=== PATIENT | female | born 1960 | race Two or more races ===

== ENCOUNTER 2021-02-07 05:28 | Emergency (ER) | payer MEDICARE, OTHER, SELFPAY ==
[2021-02-07 06:05] VITALS: BP 143/68; PULSE 69; RESP 20; TEMP 36.3; O2SAT 97; BMI 31.0
[2021-02-07 07:29] VITALS: BP 140/64; PULSE 61; TEMP 35.5; O2SAT 100
--- NOTE | 2021-02-07 07:38 | ED.EXTPRO ---
HPI - Extremity Problem General Chief complaint: Extremity Problem Stated complaint: left hand pain, lower back pain Time Seen by Provider: 02/07/21 07:34 Source: patient Mode of arrival: ambulatory Limitations: no limitations History of Present Illness HPI Narrative: 60 yo female with chronic back pain on meloxicam hx of back surgery in the past that did not work for her at this time no b/b incontinence no saddle anesthesia - traveling to [place] tomorrow and was hoping for injection, she also c/o L thumb pain due to repetitive movements at his job Complaint: extremity pain and other (back pain) Onset (ago): month(s) Location: left (thumb) and other (chronic low back) Quality: aching, dull and constant Radiation: none Relieving factors: nothing Exacerbating factors: range of motion and palpation Associated symptoms: denies other symptoms Context: other (repetitive movements at work) Related Data Previous Rx's Medication Instructions Recorded diazepam [Valium] 5 mg PO TID PRN #10 tab 02/07/21 lidocaine 1 patch TOPICAL DAILY PRN #10 ea 02/07/21 Allergies Allergy/AdvReac Type Severity Reaction Status Date / Time aspirin [ASA] Allergy Unknown STOMACH Unverified 05/03/20 19:45 UPSET avocado [AVOCADO] Allergy Unknown RASH Unverified 05/03/20 19:45 Review of Systems Review of Systems: Constitutional : No Weight loss, No Fever, No Chills, ENT/Mouth : No Hearing loss, No Ear Pain, No Nasal Congestion, No Sinus Pain, No Hoarseness, No sore throat, No Rhinorrhea, No Swallowing Difficulty Cardiovascular : No Chest Pain, No SOB Respiratory : No Cough, No Dyspnea Gastrointestinal : No Nausea, No Vomiting, No Diarrhea, No abdominal Pain, No Hematochezia, No Melena Genitourinary : No Dysuria, No Urinary Frequency, No Hematuria, No Urinary Incontinence, Musculoskeletal : positive back pain, pos joint pain Skin : No Skin Lesions, No rash Neuro : No Weakness, No Numbness, No Paresthesias, no loss of bowel or bladder incontinence, no saddle anesthesia PMFSH Past Medical History Medical History (Updated 02/07/21 @ 07:54 by Darlene Carter DO) Back pain Surgical History (Updated 02/07/21 @ 07:49 by Darlene Carter DO) Previous back surgery Social History Social History Alcohol intake: current Alcohol intake frequency: holidays/special occasions only Patient Tobacco Use Status: Never used Tobacco Use of substances other than those prescribed or required for medical reasons: No Advance Directives: No Advance Directives Information Provided: No Physical Exam Vital Signs: Vital Signs: Last Vital Signs Temp 95.9 F L 02/07/21 07:29 Pulse 61 02/07/21 07:29 Resp 20 02/07/21 06:05 BP 140/64 H 02/07/21 07:29 Pulse Ox 100 02/07/21 07:29 Body Mass Index 31.0 Appearance: Alert. Oriented X3. No acute distress. Eyes: Pupils equal, round and reactive to light. ENT: Pharynx normal. Neck: Normal inspection. Neck supple. CVS: Normal heart rate and rhythm. Pulses normal. Respiratory: No respiratory distress. Breath sounds normal. Abdomen: Soft and non-tender. Back: ttp along lumbar area, no step offs Skin: Skin warm and dry. Normal skin color. Normal skin turgor. Extremities: No lower extremity edema. No calf ttp L thumb NV intact pos pain to palpation over thenar eminence and ROM Neuro: Oriented X 3. No motor deficit. No sensory deficit. MDM - Extremity (Nontraumatic) MDM Narrative Medical decision making narrative: 60 yo female with chronic back pain on meloxicam hx of back surgery in the past that did not work for her at this time no b/b incontinence no saddle anesthesia - traveling to [place] tomorrow and was hoping for injection, she also c/o L thumb pain due to repetitive movements at her job at this time no signs of CE syndrome, unfortunately it seems she is trying to get an injection prior to travel disucssed with her that this is not an ED treatment plan available, will start on valium and lidocaine patches, splint for her left wrist/thumb Discharge Plan Discharge Clinical Impression: Acute lumbar back pain, Arthralgia Patient Disposition: Home, Self-Care Instructions: Back Pain (ED), Arthritis (ED) Additional Instructions: return to ED for any worsening symptoms or concerns wear splint for comfort for 5 days Prescriptions: New lidocaine 4 % adhesive patch,medicated 1 patch topical DAILY PRN (Reason: pain) Qty: 10 RF: 0 diazepam [Valium] 5 mg tablet 5 mg PO TID PRN (Reason: muscle spasm) Qty: 10 RF: 0 Referrals: Physician,Unknown [Primary Care Provider] - 2 days (if not better) Print Language: Sinhala
[2021-02-07] MEDS: Lidocaine 4 % Patch ADH..PATCH 2 PATCH TRANSDERMA (07:49)
[2021-02-07] MEDS: diazePAM 5 MG TABLET PO (07:49)
== END 2021-02-07 08:05 | disposition home or self-care (01) ==
PROVIDERS: Emergency Provider Emergency Medicine
DX: M54.5 Low back pain (principal); M79.645 Pain in left finger(s)
CPT/HCPCS: 99283; 99284

== ENCOUNTER 2021-08-21 14:17 | Emergency (ER) | payer MEDICARE, OTHER, SELFPAY ==
--- NOTE | 2021-08-21 | ECG_ITS ---
Test Reason : arm pain Blood Pressure : / mmHG Vent. Rate : 069 BPM Atrial Rate : 069 BPM P-R Int : 154 ms QRS Dur : 082 ms QT Int : 450 ms P-R-T Axes : 054 020 -01 degrees QTc Int : 482 ms Normal sinus rhythm ST & T wave abnormality, consider inferior ischemia NSTT in anterior leads Prolonged QT Abnormal ECG No previous ECGs available Referred By: Generic ED Physician Electronically Signed By:CECE MCKENZIE MD
--- NOTE | ~2021-08-21 | XR_ITS ---
EXAMINATION: XR SHOULDER, LEFT CLINICAL INFORMATION: Shoulder pain COMPARISON: None TECHNIQUE: Left shoulder is imaged in 3 views. FINDINGS: No fracture, dislocation, destructive process. The glenohumeral joint is normal. The acromioclavicular alignment is normal. There is fine mineralization in region of distal supraspinatus consistent with calcific tendinosis. Left lung apex is clear. XR/XR shoulder LT min 2V IMPRESSION: Calcific tendinosis distal superior rotator cuff.
[2021-08-21 15:50] VITALS: BP 159/74; PULSE 76; RESP 18; TEMP 36.8; O2SAT 98
--- NOTE | 2021-08-21 17:03 | ED.NECK ---
HPI - Neck Pain/Injury General Chief Complaint: Neck Pain/Injury Stated Complaint: Neck pain L shoulder pain Time Seen by Provider: 08/21/21 16:36 Source: patient Mode of arrival: ambulatory Limitations: no limitations History of Present Illness HPI Narrative: 61-year-old female who presents emergency department for evaluation of left neck pain. The patient states she has been having pain in her left in a for approximately 3 months. She does not recall any injury. She is being treated for repetitive motion injury by [facility]. She is also getting physical therapy. She is on multiple medications including gabapentin, sulindac, Topamax, meloxicam and lidocaine patches. 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 She states she has a constant, left-sided neck pain which is a cramping /sharp pain which is 9/10 at its worst. The pain is worse if she tries to move her neck to the left. She states the pain radiates to her left shoulder and she has increased pain when she moves her left shoulder. She states the pain radiates down to her biceps as well. She states occasionally she gets tingling this and weakness in her left arm. She states that today, the pain was severe and was 9/10, she took her medications as prescribed her pain was still severe therefore she came to the emergency department for evaluation. She denied being ill in any other way, she denied fever, chills, chest pain, shortness of breath, dyspnea on exertion,nausea, vomiting, or weakness. Related Data Previous Rx's Medication Instructions Recorded diazepam 5 mg tablet (Valium) 5 mg PO TID PRN #10 tab 02/07/21 lidocaine 4 % topical patch 1 patch TOPICAL DAILY PRN #10 ea 02/07/21 cyclobenzaprine 10 mg tablet 10 mg PO TID PRN #20 tab 08/21/21 Allergies Allergy/AdvReac Type Severity Reaction Status Date / Time aspirin [ASA] Allergy Unknown STOMACH Verified 08/21/21 15:50 UPSET avocado [AVOCADO] Allergy Unknown RASH Verified 08/21/21 15:50 latex Allergy Rash Verified 08/21/21 15:50 Review of Systems Review of Systems: Yes all other systems are reviewed and are negative [facility] Past Medical History [facility] Narrative: Past medical history: Left neck pain, lower back pain,. Past surgical history: None. 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 She denies tobacco and alcohol use. She denies drug use. Medical History (Updated 08/21/21 @ 17:14 by Jin Farias MD) Back pain Surgical History (Updated 02/07/21 @ 07:49 by Darlene Carter DO) Previous back surgery Social History Social History Alcohol intake: current Alcohol intake frequency: holidays/special occasions only Patient Tobacco Use Status: Never used Tobacco Physical Exam Vital Signs: Vital Signs: Last Vital Signs Temp 98.2 F 08/21/21 15:50 Pulse 76 08/21/21 15:50 Resp 18 08/21/21 15:50 BP 159/74 H 08/21/21 15:50 Pulse Ox 98 08/21/21 15:50 BMI result Body Mass Index 30.0 Const: General: cooperative and no acute distress Limitations: no limitations HENMT: Head: Yes normal to inspection, Yes normocephalic and Yes atraumatic Ears: external ears normal General nose exam: Normal external nose present Face and sinus: Yes normal facial exam Mouth: Normal oral and palatal mucosa present Throat: Yes posterior oropharynx normal Eyes: General: appearance normal, both eyes and all related structures Neck: Other: The patient has no cervical spine tenderness, she does have significant tenderness with palpation and squeezing the trapezius muscle from the base of the skull to her shoulder. She has normal chin to chest and chin to right shoulder movement. She has limited chin to left shoulder movement secondary to pain and spasm of her trapezius muscles. She has no cervical spine tenderness. Chest: Chest palpation & inspection: normal inspection of the chest and normal palpation of entire chest wall Resp: Effort & Inspection: normal respiratory effort and able to speak in complete sentences Auscultation: clear to auscultation bilaterally Cardio: Rate: regular rate Rhythm: regular rhythm Heart sounds: S1 normal heart sound present, S2 normal heart sound present and no murmurs GI: Inspection: Yes normal to inspection Palpation (GI): Soft to palpation, nontender and no guarding Auscultation: normal bowel sounds : General: Yes no CVA tenderness Back/Spine/Pelvis: Back: no CVA tenderness Skin: General skin exam: no rashes or lesions noted Neuro: Other: Awake, alert, female, pleasant, cooperative, answers all questions appropriately, oriented to person place. Cranial nerves 2-12 are intact. Upper extremity strength is normal. Normal light touch. Motor exam (neuro): 5/5 motor strength present throughout Extrem: Other: Patient has no tenderness palpation of her deltoid muscle. She has full range of motion of her right shoulder both passively and actively. Psych: Appearance: grossly normal Speech and movement: Normal speech and movement present Affect: normal affect Attitude: cooperative Thought process: Normal thought process present Thought content: Normal thought content present Course Course Course Narrative: 61-year-old female who presents emergency department for evaluation left sided neck pain x3 months, worse today. Patient is currently being treated for repetitive motion injury by [facility], she is on medications for pain and is getting physical therapy. She states the pain today however was 9 of 10 therefore she came emergency department for evaluation. On examination the patient does have significant tenderness and spasm of the left trapezius muscle. Her exam is otherwise unremarkable. X-rays of her left shoulder revealed no acute injury, she does have calcification of the supraspinatus muscle but I do not think that this is the cause of her neck pain. The patient was advised to continue taking her medications as prescribed by her providers. She was also started on Flexeril ( cyclobenzaprine) 10 mg 3 times a day as needed for pain. I told her to initially take this medication at night and then take it during the day if she is not working. Patient was given a note not return to work until Thursday/ 08/23/2021. She was given printed and verbal instructions and discharged home. MDM - Neck Pain/Injury ECG Data Attestation: I personally reviewed and interpreted this ECG as follows: Interpretation: 1609: Normal sinus rhythm rate of 69, normal OR and QRS durations, prolonged QTC of 482 milliseconds, inverted T-waves in lead 3 and AVF, V1 and V3, no ST segment elevation, no ST segment depression, no PACs, no PVCs. Discharge Plan Discharge Clinical Impression: Strain of left trapezius muscle Patient Disposition: Home, Self-Care Additional Instructions: Continue taking medications as prescribed by [facility] providers. Take Flexeril (cyclobenzaprine) 10 mg pills, 1 pill every 6-8 hours as needed for pain or spasm. This medication will make you sleepy. Do not drive or work while taking this medication. Back Pain Discharge Instructions: Apply ice for 15 minutes to the area that hurts on your neck, then apply a heating a pad on low for 15 minutes. Do this 4-6 times a day to help reduce the pain in your neck. Continue with normal activities as tolerated since staying in bed and not moving around will make your pain worse. Please return to the Emergency Department or see your doctor immediately if your symptoms get worse or if you develop any new symptoms that are concerning you. Follow up with your doctor in 2 day. please see the work note Prescriptions: New cyclobenzaprine 10 mg tablet 10 mg PO TID PRN (Reason: muscle pain or spasm) Qty: 20 RF: 0 No Action lidocaine 4 % adhesive patch,medicated 1 patch topical DAILY PRN (Reason: pain) Qty: 10 RF: 0 diazepam [Valium] 5 mg tablet 5 mg PO TID PRN (Reason: muscle spasm) Qty: 10 RF: 0 Stand Alone Forms: Work/School Release
== END 2021-08-21 18:23 | disposition home or self-care (01) ==
LOC: HO.ED 17:21
PROVIDERS: Emergency Provider Emergency Medicine Emergency Medical Services; PCP Physician Assistant
DX: S16.1XXA Strain of muscle, fascia and tendon at neck level, initial encounter (principal); M25.512 Pain in left shoulder; X58.XXXA Exposure to other specified factors, initial encounter; Y93.9 Activity, unspecified; Y92.9 Unspecified place or not applicable; Y99.9 Unspecified external cause status
CPT/HCPCS: 73030; 93005; 99283

== ENCOUNTER 2021-11-13 10:11 | Emergency (ER) | payer MEDICARE, OTHER, SELFPAY ==
--- NOTE | ~2021-11-13 | XR_ITS ---
EXAMINATION: XR ABDOMEN KUB CLINICAL INDICATION: Low suspicion of ulcer perforation/free air COMPARISON: None TECHNIQUE: Supine view of the abdomen and pelvis FINDINGS: No dilated loops of bowel are seen. There is no evidence of free air. There are surgical clips in the right upper quadrant. There are bilateral pelvic calcifications probably representing calcified phleboliths. There is curvature of the lumbar spine to the left and degenerative change. There are degenerative changes at the hip joints. There is a 4 x 28 mm radiopaque density that projects over the right femoral intertrochanteric region. XR/XR KUB IMPRESSION: No evidence of free air. 4 x 28 mm radiopaque density projects over the right femoral intertrochanteric region. Clinical correlation recommended.
[2021-11-13 10:15] VITALS: BP 160/80; PULSE 76; RESP 18; TEMP 36.1; O2SAT 98; BMI 31.2
[2021-11-13 11:41] LABS: Basophils Percent Auto 0.3 % (0-2); Eosinophils Percent Auto 0.3 % (0-4); Hemoglobin 13.7 g/dl (12.0-16.0); Imm Gran Abs Auto 0.03 X10*3/uL (0.00-0.03); Imm Gran Pct Auto 0.4 % (0.0-0.4); Lymphocytes Absolute Auto 1.8 X10*3/uL (1.2-4.9); Lymphocytes Percent Auto 26.2 % (20-40); MANUAL DIFF FLAG NO; Mean Corpuscular HGB Conc 32.6 g/dl (31.0-35.0); Mean Corpuscular Hemoglobin 29.7 pg (27.0-33.0); Mean Corpuscular Volume 91.1 fL (80.0-98.0); Mean Platelet Volume 9.5 fL (9.4-12.3); Monocytes Absolute Auto 0.4 X10*3/uL (0.1-1.2); Monocytes Percent Auto 5.7 % (2-11); Neutrophils Absolute Auto 4.7 x10*3/uL (2.0-8.3); Neutrophils Percent Auto 67.1 % (45-73); Platelet Count 251 X10*3/uL (160-400); Red Blood Count 4.61 X10*6/uL (4.20-5.50); Red Cell Distribution Width 13.6 % (11.0-16.0)
[2021-11-13 12:11] LABS: Anion Gap 12 (12-20); Blood Urea Nitrogen 20 mg/dL (9-16); Carbon Dioxide 30 mmol/L (22-29); Chloride 104 mmol/L (96-108); Creatinine Clr Calc Pharmacy 88.9; Estimated Glomerular Filt Rate > 60; Glucose Random 90 mg/dL (60-115); Potassium 4.1 mmol/L (3.3-5.1); Sodium 142 mmol/L (135-145)
--- NOTE | 2021-11-13 13:44 | ED.ABDPAIN ---
HPI - Abdominal Pain General Chief Complaint: Abdominal Pain Stated Complaint: Abd pain/back pain Time Seen by Provider: 11/13/21 13:35 Source: patient Mode of arrival: ambulatory Limitations: no limitations History of Present Illness HPI narrative: Patient comes to the emergency room complaining of epigastric pain that gets worse with any food intake or liquid intake. Patient states that for the last 2 weeks it has become more painful. Patient states that she has history of cholecystectomy done many years ago?. Patient has been trying to take Tums and [id number] medications to help with the pain. Patient has never had an EGD in the past Related Data Previous Rx's Medication Instructions Recorded diazepam 5 mg tablet (Valium) 5 mg PO TID PRN #10 tab 02/07/21 lidocaine 4 % topical patch 1 patch TOPICAL DAILY PRN #10 ea 02/07/21 cyclobenzaprine 10 mg tablet 10 mg PO TID PRN #20 tab 08/21/21 omeprazole 20 mg capsule,delayed 20 mg PO DAILY #30 cap 11/13/21 release Allergies Allergy/AdvReac Type Severity Reaction Status Date / Time aspirin [ASA] Allergy Unknown STOMACH Verified 11/13/21 10:17 UPSET avocado [AVOCADO] Allergy Unknown RASH Verified 11/13/21 10:17 latex Allergy Rash Verified 11/13/21 10:17 [facility] Past Medical History Medical History (Updated 11/13/21 @ 16:27 by Isabel Ramirez MD) Back pain Surgical History (Updated 11/13/21 @ 13:50 by Isabel Ramirez MD) History of abdominoplasty History of cholecystectomy Previous back surgery Social History Social History Alcohol intake: current Alcohol intake frequency: holidays/special occasions only Patient Tobacco Use Status: Never used Tobacco Advance Directives: No Advance Directives Information Provided: No Physical Exam ED Vital Signs: Vital Signs - 24 hr 11/13/21 10:15 11/13/21 16:21 Temperature 97 F 98.2 F Pulse Rate 76 63 Respiratory Rate 18 17 Blood Pressure 160/80 H 140/76 H Pulse Oximetry 98 100 BMI result Body Mass Index 31.2 Const Other: Appearance: Alert. Oriented X3. No acute distress. Eyes: Pupils equal, round and reactive to light. ENT: Pharynx normal. Neck: Normal inspection. Neck supple. No lymph nodes noted. No crepitus CVS: Normal heart rate and rhythm. Pulses normal. Normal S1 and S2 Respiratory: No respiratory distress. Breath sounds normal. No Wheezing. No rales Abdomen: Soft , mild pain to palpation in the epigastric area, negative Lares sign Skin: Skin warm and dry. Normal skin color. Normal skin turgor. Extremities: No lower extremity edema. No Lacerations. No Rash Neuro: Oriented X 3. No motor deficit. No sensory deficit. Moving all extremities. No slurred speech. CN 2 through 12 grossly intact Psych: calm, cooperative, anxious Course Course Course Narrative: Patient's LFTs within normal limits, patient has history of cholecystectomy. Patient likely has gastritis versus peptic ulcer. I reviewed the KUB, it does not seem the patient has free air under the diaphragm. Radiology report pending, sign-out given to Dr. Aguila [facility] - Abdominal Pain Lab Data Result diagrams: 11/13/21 11:37 11/13/21 11:37 Labs: Lab Results 11/13/21 11/13/21 Range/Units 11:37 11:37 WBC 7.0 (4.8-10.8) X10*3/uL RBC 4.61 (4.20-5.50) X10*6/uL Hgb 13.7 (12.0-16.0) g/dl Hct 42.0 (37.0-47.0) % MCV 91.1 (80.0-98.0) fL MCH 29.7 (27.0-33.0) pg MCHC 32.6 (31.0-35.0) g/dl RDW 13.6 (11.0-16.0) % Plt Count 251 (160-400) X10*3/uL MPV 9.5 (9.4-12.3) fL Immature Gran % (Auto) 0.4 (0.0-0.4) % Neut % (Auto) 67.1 (45-73) % Lymph % (Auto) 26.2 (20-40) % [place] % (Auto) 5.7 (2-11) % Eos % (Auto) 0.3 (0-4) % Baso % (Auto) 0.3 (0-2) % Lymph # (Auto) 1.8 (1.2-4.9) X10*3/uL [place] # (Auto) 0.4 (0.1-1.2) X10*3/uL Eos # (Auto) 0.0 (0.0-0.4) X10*3/uL Baso # (Auto) 0.0 (0.0-0.2) X10*3/uL Abs Immat Gran (auto) 0.03 (0.00-0.03) X10*3/uL Absolute Neuts (auto) 4.7 (2.0-8.3) x10*3/uL Absolute Nucleated RBC 0.000 (0.0-0.012) X10*3/uL Nucleated RBC % (auto) 0.0 (0.0-0.2) /100WBC Sodium 142 (135-145) mmol/L Potassium 4.1 (3.3-5.1) mmol/L Chloride 104 (96-108) mmol/L Carbon Dioxide 30 H (22-29) mmol/L Anion Gap 12 (12-20) BUN 20 H (9-16) mg/dL Creatinine 0.69 (0.5-1.4) mg/dL Estim Creat Clear Calc 88.9 Estimated GFR > 60 Random Glucose 90 (60-115) mg/dL Calcium 10.0 (8.4-10.2) mg/dL Total Bilirubin 0.5 (0.0-1.0) mg/dL Direct Bilirubin 0.2 (0.0-0.5) mg/dL AST 17 (5-31) U/L ALT 16 (0-31) U/L Alkaline Phosphatase 80 (39-117) U/L Total Protein 7.3 (6.5-8.0) g/dL Albumin 4.5 (3.5-5.0) g/dL Lipase 14 (8-78) U/L Discharge Plan Discharge Clinical Impression: Peptic ulcer disease Patient Disposition: Home, Self-Care Instructions: Gastritis (ED), Diet for Stomach Ulcers and Gastritis (ED) Additional Instructions: Please follow-up with your primary care physician tomorrow. If you have any worsening or new symptoms, please return to the emergency room or call 911 Prescriptions: New omeprazole 20 mg capsule,delayed release(DR/EC) 20 mg PO DAILY Qty: 30 0RF No Action lidocaine 4 % adhesive patch,medicated 1 patch topical DAILY PRN (Reason: pain) Qty: 10 0RF Rx Instructions: may leave on for up to 12 hrs diazepam [Valium] 5 mg tablet 5 mg PO TID PRN (Reason: muscle spasm) Qty: 10 0RF cyclobenzaprine 10 mg tablet 10 mg PO TID PRN (Reason: muscle pain or spasm) Qty: 20 0RF
[2021-11-13 13:56] LABS: Alanine Aminotransferase 16 U/L (0-31); Albumin Level 4.5 g/dL (3.5-5.0); Alkaline Phosphatase 80 U/L (39-117); Aspartate Amino Transferase 17 U/L (5-31); Bilirubin Direct 0.2 mg/dL (0.0-0.5); Bilirubin Total 0.5 mg/dL (0.0-1.0); Lipase 14 U/L (8-78); Total Protein 7.3 g/dL (6.5-8.0)
[2021-11-13] MEDS: Magnesium Hydrox/Alum Hydrox 30 ML ORAL.SUSP PO (13:56)
[2021-11-13] MEDS: Lidocaine HCl Viscous 2 % 15 ML SOLUTION MUCOUS MEM (13:56)
[2021-11-13 16:21] VITALS: BP 140/76; PULSE 63; RESP 17; TEMP 36.8; O2SAT 100
[2021-11-13 16:30] LABS: Appearance Urine HAZY; Color Urine YELLOW; Glucose Urine UA NEG (NEG); Leukocyte Esterase Urine NEG (NEG); Nitrite Urine NEG (NEG); PH 6.5 (5.0-8.0); Specific Gravity - Urine 1.015 (1.005-1.025); Urine Blood NEG (NEG); Urine Ketones NEG (NEG); Urine Protein NEG (NEG-TRACE)
== END 2021-11-13 16:41 | disposition home or self-care (01) ==
PROVIDERS: Emergency Provider Emergency Medicine
DX: K27.9 Peptic ulcer, site unspecified, unspecified as acute or chronic, without hemorrhage or perforation (principal); R10.13 Epigastric pain; Z90.49 Acquired absence of other specified parts of digestive tract
CPT/HCPCS: 36415; 74018; 80048; 80076; 81003; 83690; 85025; 99283

== ENCOUNTER 2021-12-27 08:45 | Emergency (ER) | payer OTHER, SELFPAY ==
[2021-12-27 08:58] VITALS: BP 134/67; PULSE 70; RESP 19; TEMP 36.6; O2SAT 98; BMI 28.3
--- NOTE | 2021-12-27 09:17 | ED.BACK ---
HPI - Back Pain/Injury General Chief Complaint: Back Pain/Injury Stated Complaint: lower back pain/swollen ankle Time Seen by Provider: 12/27/21 09:15 Source: patient Mode of arrival: ambulatory Limitations: no limitations History of Present Illness HPI Narrative: just had cortisone shots 1+ week ago at [facility] no relief of pain states she feels stiff now and her pain is not relieved with flexeril. she also c/o ankle swelling x 1 year that his not getting better despite lasix 20mg daily - has not seen a vascular surgeon and compression stockings never helped MD elicited complaint: back pain Pertinent past history: prior back pain Onset (ago): year(s) (1) Timing: constant Severity: moderate Quality: aching and throbbing Location: lumbar spine and thoracic spine Radiation: none Exacerbating factors: movement Relieving factors: none Context: other (chronic back pain) Associated symptoms: other (denies b/b incontinence, saddle anesthesia, also c/o 1 year of ankle swelling) Treatments prior to arrival: other (flexeril) Related Data Previous Rx's Medication Instructions Recorded diazepam 5 mg tablet (Valium) 5 mg PO TID PRN #10 tab 02/07/21 lidocaine 4 % topical patch 1 patch TOPICAL DAILY PRN #10 ea 02/07/21 cyclobenzaprine 10 mg tablet 10 mg PO TID PRN #20 tab 08/21/21 omeprazole 20 mg capsule,delayed 20 mg PO DAILY #30 cap 11/13/21 release morphine 15 mg immediate release 15 mg PO TID PRN #10 tab 12/27/21 tablet Allergies Allergy/AdvReac Type Severity Reaction Status Date / Time aspirin [ASA] Allergy Unknown STOMACH Verified 11/13/21 10:17 UPSET avocado [AVOCADO] Allergy Unknown RASH Verified 11/13/21 10:17 latex Allergy Rash Verified 11/13/21 10:17 Review of Systems Review of Systems: Constitutional : No Weight loss, No Fever, No Chills, ENT/Mouth : No Hearing loss, No Ear Pain, No Nasal Congestion, No Sinus Pain, No Hoarseness, No sore throat, No Rhinorrhea, No Swallowing Difficulty Cardiovascular : No Chest Pain, No SOB, pos ankle swelling Respiratory : No Cough, No Dyspnea Gastrointestinal : No Nausea, No Vomiting, No Diarrhea, No abdominal Pain, No Hematochezia, No Melena Genitourinary : No Dysuria, No Urinary Frequency, No Hematuria, No Urinary Incontinence, Musculoskeletal : positive back pain Skin : No Skin Lesions, No rash Neuro : No Weakness, No Numbness, No Paresthesias, no loss of bowel or bladder incontinence, no saddle anesthesia All other systems reviewed and are negative [facility] Past Medical History Attestation statement: The following information was validated with the patient. Medical History Back pain GERD (gastroesophageal reflux disease) HTN (hypertension) Lower extremity edema Surgical History History of abdominoplasty History of cholecystectomy Previous back surgery Social History Social History Alcohol intake: never Patient Tobacco Use Status: Never used Tobacco Use of substances other than those prescribed or required for medical reasons: No Advance Directives: No Advance Directives Information Provided: No Physical Exam Vital Signs: Vital Signs: Last Vital Signs Temp 98 F 12/27/21 08:58 Pulse 68 12/27/21 10:13 Resp 18 12/27/21 10:13 BP 117/65 12/27/21 10:13 Pulse Ox 98 12/27/21 10:13 BMI result Body Mass Index 28.3 Appearance: Alert. Oriented X3. No acute distress. Eyes: Pupils equal, round and reactive to light. ENT: Pharynx normal. Neck: Normal inspection. Neck supple. CVS: Normal heart rate and rhythm. Pulses normal. Respiratory: No respiratory distress. Breath sounds normal. Abdomen: Soft and non-tender. Back: ttp along both paraspinals no meningeal signs Skin: Skin warm and dry. Normal skin color. Normal skin turgor. Extremities: non pitting bilateral ankle edema. No calf ttp Neuro: Oriented X 3. No motor deficit. No sensory deficit. Course Course Course Narrative: negative labs stable for DC will refer to vascular surgery MDM - Back Pain/Injury MDM Narrative Medical decision making narrative: 61 yo female with hx of HTN, GERD, LE edema, chronic back pain here with c/o ankle swelling which is non pitting x 1 year on lasix 20mg daily doubt DVT given chronicity. At this time also c/o chronic back pain didn't respond to injections of steroids - no fevers no b/b incontinence no saddle anesthesia - no CE symptoms - will treat pain with PO medications. Obtain basic labs for ankle swelling but likely combination of immobility from back and venous insufficiency. Dispo per results and clinical improvement. Lab Data Result diagrams: 12/27/21 09:33 12/27/21 09:33 Labs: Lab Results 12/27/21 12/27/21 12/27/21 Range/Units 09:33 09:33 09:33 WBC 5.2 (4.8-10.8) X10*3/uL RBC 4.16 L (4.20-5.50) X10*6/uL Hgb 12.2 (12.0-16.0) g/dl Hct 37.4 (37.0-47.0) % MCV 89.9 (80.0-98.0) fL MCH 29.3 (27.0-33.0) pg MCHC 32.6 (31.0-35.0) g/dl RDW 13.4 (11.0-16.0) % Plt Count 227 (160-400) X10*3/uL MPV 9.7 (9.4-12.3) fL Immature Gran % (Auto) 0.2 (0.0-0.4) % Neut % (Auto) 67.0 (45-73) % Lymph % (Auto) 24.9 (20-40) % [place] % (Auto) 7.1 (2-11) % Eos % (Auto) 0.6 (0-4) % Baso % (Auto) 0.2 (0-2) % Lymph # (Auto) 1.3 (1.2-4.9) X10*3/uL [place] # (Auto) 0.4 (0.1-1.2) X10*3/uL Eos # (Auto) 0.0 (0.0-0.4) X10*3/uL Baso # (Auto) 0.0 (0.0-0.2) X10*3/uL Abs Immat Gran (auto) 0.01 (0.00-0.03) X10*3/uL Absolute Neuts (auto) 3.5 (2.0-8.3) x10*3/uL Absolute Nucleated RBC 0.000 (0.0-0.012) X10*3/uL Nucleated RBC % (auto) 0.0 (0.0-0.2) /100WBC Sodium 141 (135-145) mmol/L Potassium 3.8 (3.3-5.1) mmol/L Chloride 109 H (96-108) mmol/L Carbon Dioxide 25 (22-29) mmol/L Anion Gap 11 L (12-20) BUN 25 H (9-16) mg/dL Creatinine 0.73 (0.5-1.4) mg/dL Estim Creat Clear Calc 80.2 Estimated GFR > 60 Random Glucose 98 (60-115) mg/dL Calcium 9.3 D (8.4-10.2) mg/dL Magnesium 2.0 (1.6-2.6) mg/dL Total Bilirubin 0.2 (0.0-1.0) mg/dL Direct Bilirubin < 0.2 (0.0-0.5) mg/dL AST 13 (5-31) U/L ALT 13 (0-31) U/L Alkaline Phosphatase 76 (39-117) U/L B-Natriuretic Peptide 67 (<100) pg/mL Total Protein 6.6 (6.5-8.0) g/dL Albumin 3.9 (3.5-5.0) g/dL TSH 1.35 (0.32-4.0) uIU/mL Discharge Plan Discharge Clinical Impression: Pedal edema Chronic back pain Qualifiers: Back pain location: back pain in unspecified location Back pain laterality: bilateral Qualified Code(s): M54.9 - Dorsalgia, unspecified Patient Disposition: Home, Self-Care Instructions: Back Pain (ED), Edema (ED) Additional Instructions: return to ED for any worsening symptoms or concerns Prescriptions: New morphine 15 mg tablet 15 mg PO TID PRN (Reason: pain) Qty: 10 0RF Rx Instructions: partial fill okay No Action lidocaine 4 % adhesive patch,medicated 1 patch topical DAILY PRN (Reason: pain) Qty: 10 0RF Rx Instructions: may leave on for up to 12 hrs diazepam [Valium] 5 mg tablet 5 mg PO TID PRN (Reason: muscle spasm) Qty: 10 0RF cyclobenzaprine 10 mg tablet 10 mg PO TID PRN (Reason: muscle pain or spasm) Qty: 20 0RF omeprazole 20 mg capsule,delayed release(DR/EC) 20 mg PO DAILY Qty: 30 0RF Referrals: Gentry Ferguson MD [Physician] - 2 weeks Stand Alone Forms: Work/School Release
[2021-12-27 09:40] LABS: MANUAL DIFF FLAG NO
[2021-12-27 09:46] LABS: Basophils Percent Auto 0.2 % (0-2); Eosinophils Percent Auto 0.6 % (0-4); Hematocrit 37.4 % (37.0-47.0); Hemoglobin 12.2 g/dl (12.0-16.0); Imm Gran Abs Auto 0.01 X10*3/uL (0.00-0.03); Imm Gran Pct Auto 0.2 % (0.0-0.4); Lymphocytes Absolute Auto 1.3 X10*3/uL (1.2-4.9); Lymphocytes Percent Auto 24.9 % (20-40); Mean Corpuscular HGB Conc 32.6 g/dl (31.0-35.0); Mean Corpuscular Hemoglobin 29.3 pg (27.0-33.0); Mean Corpuscular Volume 89.9 fL (80.0-98.0); Mean Platelet Volume 9.7 fL (9.4-12.3); Monocytes Absolute Auto 0.4 X10*3/uL (0.1-1.2); Monocytes Percent Auto 7.1 % (2-11); Neutrophils Absolute Auto 3.5 x10*3/uL (2.0-8.3); Platelet Count 227 X10*3/uL (160-400); Red Blood Count 4.16 X10*6/uL (4.20-5.50); Red Cell Distribution Width 13.4 % (11.0-16.0); White Blood Count 5.2 X10*3/uL (4.8-10.8)
[2021-12-27 10:03] LABS: Alanine Aminotransferase 13 U/L (0-31); Albumin Level 3.9 g/dL (3.5-5.0); Alkaline Phosphatase 76 U/L (39-117); Anion Gap 11 (12-20); Aspartate Amino Transferase 13 U/L (5-31); Bilirubin Direct < 0.2 mg/dL (0.0-0.5); Bilirubin Total 0.2 mg/dL (0.0-1.0); Blood Urea Nitrogen 25 mg/dL (9-16); Calcium 9.3 mg/dL (8.4-10.2); Carbon Dioxide 25 mmol/L (22-29); Chloride 109 mmol/L (96-108); Creatinine Clr Calc Pharmacy 80.2; Estimated Glomerular Filt Rate > 60; Glucose Random 98 mg/dL (60-115); Potassium 3.8 mmol/L (3.3-5.1); Sodium 141 mmol/L (135-145); Total Protein 6.6 g/dL (6.5-8.0)
[2021-12-27] MEDS: diazePAM 2 MG TABLET PO (10:11)
[2021-12-27] MEDS: Morphine Sulfate Immed Release 15 MG TABLET PO (10:12)
[2021-12-27 10:13] VITALS: BP 117/65; PULSE 68; RESP 18; O2SAT 98
[2021-12-27 10:19] LABS: B Type Natriuretic Peptide 67 pg/mL (<100)
[2021-12-27 10:23] LABS: TSH reflex Free T4 1.35 uIU/mL (0.32-4.0)
== END 2021-12-27 11:57 | disposition home or self-care (01) ==
PROVIDERS: Emergency Provider Emergency Medicine; PCP Nurse Practitioner Family
DX: M54.50 Low back pain, unspecified (principal); R60.0 Localized edema; I10 Essential (primary) hypertension; Z79.899 Other long term (current) drug therapy
CPT/HCPCS: 36415; 80048; 80076; 83735; 83880; 84443; 85025; 99283; 99284

== ENCOUNTER → 2022-02-04 11:35 | Outpatient (BNVA) | payer OTHER, SELFPAY | PROVIDERS: PCP Nurse Practitioner Family; Visit Provider Surgery Vascular Surgery | DX: I83.12 Varicose veins of left lower extremity with inflammation (principal) | CPT/HCPCS: 99202 ==

== ENCOUNTER 2022-04-03 10:37 | Outpatient (REF) | payer OTHER, SELFPAY ==
--- NOTE | ~2022-04-03 | US_ITS ---
EXAMINATION: BILATERAL LOWER EXTREMITY VENOUS ULTRASOUND (Reflux Exam) CLINICAL INDICATION: Lower extremity varicose veins COMPARISON: None. TECHNIQUE: Color flow triplex imaging and compression Doppler was performed to evaluate both the deep and the superficial systems bilaterally. To evaluate the superficial system, the examination was performed in the upright position. Color-flow Doppler ultrasound and compression ultrasound were utilized. In addition, maneuvers were utilized to demonstrate reflux. FINDINGS: SUPERFICIAL ULTRASOUND WITH DOPPLER OF RIGHT LOWER EXTREMITY GREAT SAPHENOUS VEIN: Saphenofemoral junction: 7 mm Max diameter: 7 mm Min diameter: 3 mm Reflux: There is reflux from the knee to the ankle measuring up to 3.3 seconds. DUPLICATED MEDIAL GREAT SAPHENOUS VEIN: Max Diameter: 3 mm at the junction Reflux: None DUPLICATED LATERAL GREAT SAPHENOUS VEIN: Diameter: 2 mm at the junction Reflux: None SMALL SAPHENOUS VEIN: Proximal Calf: 3 mm Distal Calf: 2 mm Reflux: No evidence of reflux. VEIN OF GIACOMINI: None Imaged. PERFORATORS: Location: Mid/distal calf, measuring 2 mm. Reflux: None VARICOSITIES: Location: Knee and proximal calf measuring between 3 and 4 mm. Reflux: Proximal calf varix demonstrates up to 3.1 seconds of reflux. DEEP VENOUS ULTRASOUND OF THE RIGHT LOWER EXTREMITY: Common Femoral Vein: Compressible, normal respiratory variation and augmented flow. Femoral vein: Compressible, normal color flow and augmentation. Popliteal Vein: Compressible, normal augmentation. Deep Reflux: There is no evidence of reflux in the deep system in either the common femoral vein or the popliteal vein. García's Cyst: There is no evidence of a García's cyst. SUPERFICIAL ULTRASOUND WITH DOPPLER OF LEFT LOWER EXTREMITY GREAT SAPHENOUS VEIN: Saphenofemoral junction: 7 mm Max diameter: 7 mm Min diameter: 2 mm Reflux: Segmental reflux at the knee up to 2 seconds DUPLICATED MEDIAL GREAT SAPHENOUS VEIN: Max Diameter: 3 mm at the junction Reflux: None DUPLICATED LATERAL GREAT SAPHENOUS VEIN: Diameter: 4 mm at the junction Reflux: None SMALL SAPHENOUS VEIN: Proximal Calf: 4 mm Distal Calf: 4 mm Reflux: No evidence of reflux. VEIN OF GIACOMINI: None Imaged. PERFORATORS: Location: Mid thigh and mid calf measuring 2 mm Reflux: None VARICOSITIES: Location: None Imaged Reflux: NA DEEP VENOUS ULTRASOUND OF THE LEFT LOWER EXTREMITY: Common Femoral Vein: Compressible, normal respiratory variation and augmented flow. Femoral vein: Compressible, normal color flow and augmentation. Popliteal Vein: Compressible, normal augmentation. Deep Reflux: There is no evidence of reflux in the deep system in either the common femoral vein or the popliteal vein. García's Cyst: There is no evidence of a García's cyst. US/US venous duplex LE BI IMPRESSION: 1. Bilateral great saphenous venous insufficiency as above. 2. No evidence of small saphenous venous insufficiency. 3. Multiple right lower extremity varicosities. 4. No evidence of DVT or deep venous insufficiency.
== END 2022-04-03 10:38 | disposition home or self-care (01) ==
LOC: HO.US 10:37
PROVIDERS: Visit Provider Surgery Vascular Surgery
DX: I83.12 Varicose veins of left lower extremity with inflammation (principal)
CPT/HCPCS: 93970

== ENCOUNTER → 2022-04-15 15:34 | Outpatient (BNVA) | payer OTHER, SELFPAY | PROVIDERS: PCP Nurse Practitioner Family; Visit Provider Surgery Vascular Surgery | DX: I83.12 Varicose veins of left lower extremity with inflammation (principal); I89.0 Lymphedema, not elsewhere classified | CPT/HCPCS: 99212 ==

== ENCOUNTER 2022-05-07 06:51 | Emergency (ER) | payer OTHER, SELFPAY ==
[2022-05-07 07:12] VITALS: BP 153/76; PULSE 86; RESP 18; TEMP 36.9; O2SAT 97; BMI 31.7
--- NOTE | 2022-05-07 07:36 | ED_ITS ---
HPI - Neck Pain/Injury General Chief Complaint: Neck Pain/Injury Stated Complaint: l sided neck and shoulder pain no inj Time Seen by Provider: 05/07/22 07:24 Source: patient and old records reviewed Mode of arrival: ambulatory Limitations: no limitations History of Present Illness HPI Narrative: 61 yo female with hx of chronic neck pain, GERD, lymphedema here wtih c/o 2 days L sided neck spasm that she cannot get rid of. She denies injury states she woke up like this. She cannot turn to the left. no numbness or tingling complaint: neck pain Onset (ago): day(s) (2) Place: home Radiation: left lateral Severity: moderate Quality: spasming and throbbing Duration: constant Relieving factors: immobilization Exacerbating factors: movement of neck Context: other (hx of neck pain) Associated symptoms: none Treatments prior to arrival: other (daily medications) Related Data Home Medications Medication Instructions Recorded Confirmed furosemide 20 mg tablet 20 mg PO DAILY 02/04/22 Previous Rx's Medication Instructions Recorded diazepam 5 mg tablet (Valium) 5 mg PO TID PRN muscle spasm #10 02/07/21 tabs lidocaine 4 % topical patch 1 patch topical DAILY PRN pain #10 02/07/21 ea cyclobenzaprine 10 mg tablet 10 mg PO TID PRN muscle pain or 08/21/21 spasm #20 tabs omeprazole 20 mg capsule,delayed 20 mg PO DAILY #30 caps 11/13/21 release morphine 15 mg immediate release 15 mg PO TID PRN pain #10 tabs 12/27/21 tablet diazepam 5 mg tablet (Valium) 5 mg PO TID PRN muscle spasm #10 05/07/22 tabs diclofenac sodium 1 % topical gel 2 g topical QID #100 grams 05/07/22 (Voltaren Arthritis Pain) lidocaine 5 % topical patch 1 patch topical DAILY #30 ea 05/07/22 Allergies Allergy/AdvReac Type Severity Reaction Status Date / Time aspirin [ASA] Allergy Unknown STOMACH Verified 04/15/22 15:42 UPSET avocado [AVOCADO] Allergy Unknown RASH Verified 04/15/22 15:42 latex Allergy Rash Verified 04/15/22 15:42 Review of Systems Review of Systems: Constitutional : No Fever, No Chills ENT/Mouth : No Ear Pain, No Hoarseness, No sore throat Eyes: No Eye Pain, No Swelling, No Redness, No Foreign Body Cardiovascular : No Chest Pain, No SOB Respiratory : No Cough, No Dyspnea Gastrointestinal : No Nausea, No Vomiting, No Diarrhea, No abdominal Pain Musculoskeletal : No Myalgias, pos neck pain Skin : No Skin lacerations, No rash Neuro : No Weakness, No Numbness, No Loss of Consciousness, No Dizziness, No Headache PMFSH Past Medical History Medical History Back pain GERD (gastroesophageal reflux disease) HTN (hypertension) Lower extremity edema Surgical History History of abdominoplasty History of cholecystectomy Previous back surgery Family History Family History Father No problems noted. Mother Heart disease Diabetes Arthritis Social History Social History Alcohol intake: never Patient Tobacco Use Status: Never used Tobacco Advance Directives: No Advance Directives Information Provided: No Physical Exam Vital Signs: Vital Signs: Last Vital Signs Temp 98.5 F 05/07/22 07:12 Pulse 86 05/07/22 07:12 Resp 18 05/07/22 07:12 BP 153/76 H 05/07/22 07:12 Pulse Ox 97 05/07/22 07:12 O2 Del Method 05/07/22 07:12 BMI result Body Mass Index 31.7 Appearance: Alert. Oriented X3. No acute distress. Eyes: Pupils equal, round and reactive to light. ENT: Pharynx normal. Neck: L side of the neck in moderate spasm ttp no rash seen no mass felt CVS: Normal heart rate and rhythm. Pulses normal. Respiratory: No respiratory distress. Breath sounds normal. Abdomen: Soft and non-tender. Skin: Skin warm and dry. Normal skin color. Normal skin turgor. Extremities: No lower extremity edema. Neuro: Oriented X 3. No motor deficit. No sensory deficit. LUE SILT intact bounding radial pulses MDM - Neck Pain/Injury MDM Narrative Medical decision making narrative: 61 yo female with hx of chronic neck pain, GERD, lymphedema here with 2 days of reproduceable L sided neck pain upon waking - no bruit, UE are NV intact. At this time doubt NV compromise or dissection. Will provide analgesia and refer to PCP. Stable for DC home. Discharge Plan Discharge Clinical Impression: Cervical paraspinal muscle spasm Patient Disposition: Home, Self-Care Instructions: Cervical Strain (ED) Additional Instructions: return to ED for any worsening symptoms or concerns Prescriptions: New diazepam [Valium] 5 mg tablet 5 mg PO TID PRN (Reason: muscle spasm) Qty: 10 0RF Rx Instructions: partial fill is okay lidocaine 5 % adhesive patch,medicated 1 patch topical DAILY Qty: 30 0RF Rx Instructions: leave on most painful area for up to 12 hrs diclofenac sodium [Voltaren Arthritis Pain] 1 % gel 2 g topical QID Qty: 100 0RF Rx Instructions: apply to single elbow, wrist or hand; for hand includes palm/fingers/back of hand No Action lidocaine 4 % adhesive patch,medicated 1 patch topical DAILY PRN (Reason: pain) Qty: 10 0RF Rx Instructions: may leave on for up to 12 hrs diazepam [Valium] 5 mg tablet 5 mg PO TID PRN (Reason: muscle spasm) Qty: 10 0RF cyclobenzaprine 10 mg tablet 10 mg PO TID PRN (Reason: muscle pain or spasm) Qty: 20 0RF omeprazole 20 mg capsule,delayed release(DR/EC) 20 mg PO DAILY Qty: 30 0RF morphine 15 mg tablet 15 mg PO TID PRN (Reason: pain) Qty: 10 0RF Rx Instructions: partial fill okay furosemide 20 mg tablet 20 mg PO DAILY Referrals: Kaela Noguera NONPROFIT MANAGER [Primary Care Provider] - 2 days (if not better) Stand Alone Forms: Work/School Release Interventions: ED Discharge Assessment Last Done: 05/07/22 08:13 Discharge Date/Time: 05/07/22 08:13
== END 2022-05-07 08:13 | disposition home or self-care (01) ==
LOC: HO.ED 07:46
PROVIDERS: Emergency Provider Emergency Medicine; PCP Nurse Practitioner Family
DX: M62.838 Other muscle spasm (principal); M54.2 Cervicalgia
CPT/HCPCS: 99282; 99283

== ENCOUNTER 2022-07-03 20:29 | Emergency (ER) | payer OTHER, SELFPAY ==
--- NOTE | ~2022-07-03 | CT_ITS ---
EXAMINATION: CT CERVICAL SPINE WITHOUT CONTRAST CLINICAL INFORMATION: Neck pain COMPARISON: None. TECHNIQUE: Contiguous helical images of the cervical spine were obtained without IV contrast. Multiplanar reconstructions were performed. This CT examination was performed using dose optimization techniques as appropriate, variously including the following: *Automated exposure control *Adjustment of mA and/or kV according to patient size (this includes techniques or standardized protocols for targeted exams where dose is matched to indication/reason for exam; i.e. extremities or head) *Use of iterative reconstruction technique DLP: 414 mGy-cm FINDINGS: Alignment:Mild reversal of the normal cervical lordosis. No subluxation. Vertebra:No acute fracture. No prevertebral soft tissue swelling. Degenerative disc disease:Mild to moderate disc height loss at C4-C5 and C5-C6 with mild endplate sclerosis and change. Mild degenerative disc disease at T1-T2. Intervertebral disc heights otherwise maintained. Right-sided uncovertebral spurring at C5 and C6. Other findings:No cervical lymphadenopathy. Visualized major salivary glands and thyroid gland are unremarkable. Visualized base of the brain is grossly unremarkable. Visualized lung apices are clear. Mild mucosal thickening and mucous retention cyst in the left sphenoid sinus with mild hyperostosis. CT/CT cervical spine wo IV con IMPRESSION: 1. No subluxation or acute cervical spine fracture. 2. Mild to moderate degenerative disc disease at C4-C5 and C5-C6.
[2022-07-03 20:34] VITALS: BP 164/73; PULSE 71; RESP 18; TEMP 36.2; O2SAT 98; BMI 29.2
--- NOTE | 2022-07-03 20:34 | ED.NECK ---
HPI - Neck Pain/Injury General Chief Complaint: Neck Pain/Injury Stated Complaint: neck pain Time Seen by Provider: 07/03/22 22:53 Related Data Home Medications Medication Instructions Recorded Confirmed furosemide 20 mg tablet 20 mg PO DAILY 02/04/22 Previous Rx's Medication Instructions Recorded diazepam 5 mg tablet (Valium) 5 mg PO TID PRN muscle spasm #10 02/07/21 tabs lidocaine 4 % topical patch 1 patch topical DAILY PRN pain #10 02/07/21 ea cyclobenzaprine 10 mg tablet 10 mg PO TID PRN muscle pain or 08/21/21 spasm #20 tabs omeprazole 20 mg capsule,delayed 20 mg PO DAILY #30 caps 11/13/21 release morphine 15 mg immediate release 15 mg PO TID PRN pain #10 tabs 12/27/21 tablet diazepam 5 mg tablet (Valium) 5 mg PO TID PRN muscle spasm #10 05/07/22 tabs diclofenac sodium 1 % topical gel 2 g topical QID #100 grams 05/07/22 (Voltaren Arthritis Pain) lidocaine 5 % topical patch 1 patch topical DAILY #30 ea 05/07/22 cyclobenzaprine 10 mg tablet 10 mg PO BEDTIME PRN muscle spasm 07/03/22 #7 tabs lidocaine 5 % topical patch 1 patch topical DAILY PRN pain #15 07/03/22 ea prednisone 20 mg tablet 40 mg PO DAILY 5 days #10 tabs 07/03/22 Allergies Allergy/AdvReac Type Severity Reaction Status Date / Time aspirin [ASA] Allergy Unknown STOMACH Verified 04/15/22 15:42 UPSET avocado [AVOCADO] Allergy Unknown RASH Verified 04/15/22 15:42 latex Allergy Rash Verified 04/15/22 15:42 [facility] Past Medical History Medical History Back pain GERD (gastroesophageal reflux disease) HTN (hypertension) Lower extremity edema Surgical History History of abdominoplasty History of cholecystectomy Previous back surgery Family History Family History Father No problems noted. Mother Heart disease Diabetes Arthritis Social History Social History Alcohol intake: never Patient Tobacco Use Status: Never used Tobacco Smoked in Last 30 Days: No Use of substances other than those prescribed or required for medical reasons: No Advance Directives: No Advance Directives Information Provided: Yes Physical Exam Vital Signs: Vital Signs: Last Vital Signs Temp 98.1 F 07/03/22 23:20 Pulse 77 07/03/22 23:20 Resp 15 07/03/22 23:20 BP 124/72 07/03/22 23:20 Pulse Ox 99 07/03/22 23:20 O2 Del Method 07/03/22 23:20 BMI result Body Mass Index 29.2 Course Course Course Narrative: RME--61yo F w/PMHx GERD, HTN, presenting to the ED c/o neck pain > right side x2 days. Pain worse with movement. Admits to similar symptoms in the past. Denies injury/trauma or fall. Denies headache, vision change/loss, numbness, tingling, weakness. Unlikely cervical dissection/SAH +midline spinous ttp on exam and right paraspinal & tapezius muslce ttp CT Cervial spine and PO Valium ordered in triage Medications Administered Discontinued Medications Generic Name Dose Route Start Last Admin Trade Name Freq PRN Reason Stop Dose Admin Diazepam 5 mg 07/03/22 20:35 07/03/22 21:12 Diazepam 2 Mg Tablet PO 07/03/22 20:36 5 mg ONCE ONE Administration Ketorolac Tromethamine 30 mg 07/03/22 22:55 07/03/22 23:39 Ketorolac Tromethamine 15 Mg/Ml Vial IM 07/03/22 22:56 30 mg ONCE ONE Administration Discharge Plan Discharge Clinical Impression: Neck pain, Cervical radiculopathy, Torticollis Patient Disposition: Home, Self-Care Instructions: Cervical Strain (ED), Neck Pain (ED) Additional Instructions: Take your medications as prescribed. If you were prescribed antibiotics today, it is important that you take your medication to their entirety, do not skip any doses, do not finish them early. Follow-up with your primary care provider this week. Return to the emergency department with new or worsening symptoms. Such as fevers, chills, chest pain, shortness of breath, nausea, vomiting, dizziness, headache, vision changes, lethargy, numbness or tingling In case of emergency call 911 For pain you can take ibuprofen every 6 hours, Tylenol every 4 as needed for pain or discomfort. CT/CT cervical spine wo IV con IMPRESSION: 1.? No subluxation or acute cervical spine fracture. 2.? Mild to moderate degenerative disc disease at C4-C5 and C5-C6. Prescriptions: New cyclobenzaprine 10 mg tablet 10 mg PO BEDTIME PRN (Reason: muscle spasm) Qty: 7 0RF lidocaine 5 % adhesive patch,medicated 1 patch topical DAILY PRN (Reason: pain) Qty: 15 0RF Rx Instructions: leave on most painful area for up to 12 hrs prednisone 20 mg tablet 40 mg PO DAILY 5 Days Qty: 10 0RF No Action lidocaine 4 % adhesive patch,medicated 1 patch topical DAILY PRN (Reason: pain) Qty: 10 0RF Rx Instructions: may leave on for up to 12 hrs diazepam [Valium] 5 mg tablet 5 mg PO TID PRN (Reason: muscle spasm) Qty: 10 0RF cyclobenzaprine 10 mg tablet 10 mg PO TID PRN (Reason: muscle pain or spasm) Qty: 20 0RF omeprazole 20 mg capsule,delayed release(DR/EC) 20 mg PO DAILY Qty: 30 0RF morphine 15 mg tablet 15 mg PO TID PRN (Reason: pain) Qty: 10 0RF Rx Instructions: partial fill okay diazepam [Valium] 5 mg tablet 5 mg PO TID PRN (Reason: muscle spasm) Qty: 10 0RF Rx Instructions: partial fill is okay lidocaine 5 % adhesive patch,medicated 1 patch topical DAILY Qty: 30 0RF Rx Instructions: leave on most painful area for up to 12 hrs diclofenac sodium [Voltaren Arthritis Pain] 1 % gel 2 g topical QID Qty: 100 0RF Rx Instructions: apply to single elbow, wrist or hand; for hand includes palm/fingers/back of hand furosemide 20 mg tablet 20 mg PO DAILY Referrals: [facility] [Provider Group] - 2 days Kaela Noguera FNP [Primary Care Provider] - 2 days Stand Alone Forms: Work/School Release Interventions: ED Discharge Assessment Last Done: 07/03/22 23:43 Discharge Date/Time: 07/03/22 23:44
[2022-07-03] MEDS: diazePAM 2 MG TABLET 5 MG PO (21:12)
--- NOTE | 2022-07-03 22:56 | ED_ITS ---
HPI - Neck Pain/Injury General Chief Complaint: Neck Pain/Injury Stated Complaint: neck pain Time Seen by Provider: 07/03/22 22:53 Source: patient Mode of arrival: ambulatory Limitations: no limitations History of Present Illness HPI Narrative: 61-year-old female presents with atraumatic pain in neck, this has been going on for 2 days worsening. Patient describes as an aching pain, on both sides of her neck, she tells me that she thinks she slept on it weird. She describes as constant discomfort, worse with movement better at rest tells me her neck feels tight. Mentions she has hx of chronic neck pain which she is seeing a a specialist for, she reports she was scheduled to have an MRI however did not go to get it, they were doing this to possibly schedule surgery to fix which she called stenosis. Patient took Tylenol and gabapentin today with little to no relief. Times she reports pain radiates into her left upper extremity. Patient denies fevers, chills, numbness, tingling, direct trauma/blunt trauma, chest pain, shortness of breath, weakness, urinary/bowel incontinence or retention, vision changes, dizziness, headache, difficulties with ambulation. Related Data Home Medications Medication Instructions Recorded Confirmed furosemide 20 mg tablet 20 mg PO DAILY 02/04/22 Previous Rx's Medication Instructions Recorded diazepam 5 mg tablet (Valium) 5 mg PO TID PRN muscle spasm #10 02/07/21 tabs lidocaine 4 % topical patch 1 patch topical DAILY PRN pain #10 02/07/21 ea cyclobenzaprine 10 mg tablet 10 mg PO TID PRN muscle pain or 08/21/21 spasm #20 tabs omeprazole 20 mg capsule,delayed 20 mg PO DAILY #30 caps 11/13/21 release morphine 15 mg immediate release 15 mg PO TID PRN pain #10 tabs 12/27/21 tablet diazepam 5 mg tablet (Valium) 5 mg PO TID PRN muscle spasm #10 05/07/22 tabs diclofenac sodium 1 % topical gel 2 g topical QID #100 grams 05/07/22 (Voltaren Arthritis Pain) lidocaine 5 % topical patch 1 patch topical DAILY #30 ea 05/07/22 cyclobenzaprine 10 mg tablet 10 mg PO BEDTIME PRN muscle spasm 07/03/22 #7 tabs lidocaine 5 % topical patch 1 patch topical DAILY PRN pain #15 07/03/22 ea prednisone 20 mg tablet 40 mg PO DAILY 5 days #10 tabs 07/03/22 Allergies Allergy/AdvReac Type Severity Reaction Status Date / Time aspirin [ASA] Allergy Unknown STOMACH Verified 04/15/22 15:42 UPSET avocado [AVOCADO] Allergy Unknown RASH Verified 04/15/22 15:42 latex Allergy Rash Verified 04/15/22 15:42 Review of Systems Review of Systems: Constitutional : No Weight loss, No Fever, No Chills, No Fatigue, No Malaise ENT/Mouth : No sore throat, No Rhinorrhea Eyes: No Eye Pain, No Swelling, No Redness Cardiovascular : No Chest Pain, No SOB, No Dyspnea on Exertion, No Orthopnea, No Edema, No Palpitations Respiratory : No Cough, No Sputum, No Wheezing Gastrointestinal : No Nausea, No Vomiting, No Diarrhea, No Constipation, No abdominal Pain, No Hematochezia, No Melena Genitourinary : No Dysuria, No Urinary Frequency, No Hematuria, Musculoskeletal : + joint pain, No Myalgias, No Joint Swelling Skin : No Skin Lesions, No rash Neuro : No Weakness, No Numbness, No Dizziness, No Headache Psych : No Anxiety/Panic, No Depression All other systems reviewed and are negative Yes all other systems are reviewed and are negative [facility] Past Medical History Attestation statement: The following information was validated with the patient. Source: old records reviewed and nursing notes reviewed Medical History Back pain GERD (gastroesophageal reflux disease) HTN (hypertension) Lower extremity edema Surgical History History of abdominoplasty History of cholecystectomy Previous back surgery Family History Family History Father No problems noted. Mother Heart disease Diabetes Arthritis Social History Social History Alcohol intake: never Patient Tobacco Use Status: Never used Tobacco Advance Directives: No Advance Directives Information Provided: Yes Physical Exam Vital Signs: Vital Signs: Last Vital Signs Temp 97.1 F 07/03/22 20:34 Pulse 71 07/03/22 20:34 Resp 18 07/03/22 20:34 BP 164/73 H 07/03/22 20:34 Pulse Ox 98 07/03/22 20:34 O2 Del Method 07/03/22 20:34 BMI result Body Mass Index 29.2 Vital signs stable Appearance: Alert.? Oriented X3.? No acute distress.? Head: Normocephalic, atraumatic, no step-offs or deformities Eyes: Pupils equal, round and reactive to light.? Neck: Normal inspection.? Neck supple.? Negative Kernig and Brudzinski. Meningeal signs. Negative lehermit sign. Normal shoulder strength. Tenderness to bilateral paraspinous muscles. CVS: Normal heart rate and rhythm.? Pulses normal.? Respiratory: No respiratory distress.? Breath sounds normal.? Abdomen: Soft and nontender.? Skin: Skin warm and dry.? Normal skin color.? Normal skin turgor.? Extremities: No lower extremity edema.? No calf ttp. 5/5 strength to bilateral upper and lower extremities 2+ DTRs to patellar region. Back: No midline tenderness, no C-spine tenderness, full range of motion, no CVA tenderness bilaterally Neuro: Oriented X 3.? No motor deficit.? No sensory deficit. CN 2-12 intact no saddle paresthesias. Patient ambulating with steady gait normal coordination. Normal sensation to upper and lower extremities. Normal [id number], [id number]. Course Reevaluation(s) Reevaluation #1: CT of cervical spine with no subluxation or acute cervical spine fracture. [id number] degenerative disc disease noted at C4 through C6. Likely cervical spasm. At this time patient will be discharged home advised return with new or worsening symptoms. Will discharge on cyclobenzaprine, Lidoderm and prednisone. Educated on worrisome signs and symptoms and when to return. At this time I feel comfortable discharge. Time: 22:59 Medications Administered Discontinued Medications Generic Name Dose Route Start Last Admin Trade Name Freq PRN Reason Stop Dose Admin Diazepam 5 mg 07/03/22 20:35 07/03/22 21:12 Diazepam 2 Mg Tablet PO 07/03/22 20:36 5 mg ONCE ONE Administration MDM - Neck Pain/Injury MDM Narrative Medical decision making narrative: [id number] 61-year-old female presents with atraumatic neck pain x2 days worsening, long history of chronic neck pain. No history of IV drug abuse, cancer, previous back surgeries, no fevers or chills, numbness or tingling. Physical examination with paraspinous tenderness in the cervical region, no midline tenderness, negative Lhermitte's sign, no meningeal signs. Regular rate and rhythm. Lungs clear. Abdomen soft nontender nondistended. No saddle paresthesias. DTRs intact to bilateral lower extremities. Neuro nonfocal. Cerebellar intact. Patient ambulating with steady gait normal coordination History and physical examination likely neck sprain/strain/muscle spasm vs cervical radiculopathy. Unlikely meningitis, epidural abscess, cord compressio n, fractures or dislocation. CT scan was ordered from triage. No need for further imaging, laboratory studies at this time. Medical Records Attestation: I reviewed the patient's medical records. Lab Data Attestation: I reviewed the patient's lab results. Critical Care Time Critical Care Time Critical Care Time: No Discharge Plan Discharge Clinical Impression: Neck pain, Cervical radiculopathy, Torticollis Patient Disposition: Home, Self-Care Instructions: Cervical Strain (ED), Neck Pain (ED) Additional Instructions: Take your medications as prescribed. If you were prescribed antibiotics today, it is important that you take your medication to their entirety, do not skip any doses, do not finish them early. Follow-up with your primary care provider this week. Return to the emergency department with new or worsening symptoms. Such as fevers, chills, chest pain, shortness of breath, nausea, vomiting, dizziness, headache, vision changes, lethargy, numbness or tingling In case of emergency call 911 For pain you can take ibuprofen every 6 hours, Tylenol every 4 as needed for pain or discomfort. CT/CT cervical spine wo IV con IMPRESSION: 1.? No subluxation or acute cervical spine fracture. 2.? Mild to moderate degenerative disc disease at C4-C5 and C5-C6. Prescriptions: New cyclobenzaprine 10 mg tablet 10 mg PO BEDTIME PRN (Reason: muscle spasm) Qty: 7 0RF lidocaine 5 % adhesive patch,medicated 1 patch topical DAILY PRN (Reason: pain) Qty: 15 0RF Rx Instructions: leave on most painful area for up to 12 hrs prednisone 20 mg tablet 40 mg PO DAILY 5 Days Qty: 10 0RF No Action lidocaine 4 % adhesive patch,medicated 1 patch topical DAILY PRN (Reason: pain) Qty: 10 0RF Rx Instructions: may leave on for up to 12 hrs diazepam [Valium] 5 mg tablet 5 mg PO TID PRN (Reason: muscle spasm) Qty: 10 0RF cyclobenzaprine 10 mg tablet 10 mg PO TID PRN (Reason: muscle pain or spasm) Qty: 20 0RF omeprazole 20 mg capsule,delayed release(DR/EC) 20 mg PO DAILY Qty: 30 0RF morphine 15 mg tablet 15 mg PO TID PRN (Reason: pain) Qty: 10 0RF Rx Instructions: partial fill okay diazepam [Valium] 5 mg tablet 5 mg PO TID PRN (Reason: muscle spasm) Qty: 10 0RF Rx Instructions: partial fill is okay lidocaine 5 % adhesive patch,medicated 1 patch topical DAILY Qty: 30 0RF Rx Instructions: leave on most painful area for up to 12 hrs diclofenac sodium [Voltaren Arthritis Pain] 1 % gel 2 g topical QID Qty: 100 0RF Rx Instructions: apply to single elbow, wrist or hand; for hand includes palm/fingers/back of hand furosemide 20 mg tablet 20 mg PO DAILY Referrals: Kaela Noguera FNP [Primary Care Provider] - 2 days [facility] [Provider Group] - 2 days Stand Alone Forms: Work/School Release
[2022-07-03 23:20] VITALS: BP 124/72; PULSE 77; RESP 15; TEMP 36.7; O2SAT 99
[2022-07-03] MEDS: Ketorolac Tromethamine 15 MG/ML VIAL 30 MG IM (23:39)
== END 2022-07-03 23:44 | disposition home or self-care (01) ==
PROVIDERS: Emergency Provider Internal Medicine; PCP Nurse Practitioner Family
DX: M54.2 Cervicalgia (principal); M43.6 Torticollis; Z79.899 Other long term (current) drug therapy
CPT/HCPCS: 72125; 96372; 99284; J1885

== ENCOUNTER 2022-12-22 05:35 | Emergency (ER) | payer OTHER, SELFPAY | END 2022-12-22 06:09 | disposition left against medical advice (07) | PROVIDERS: Emergency Provider Emergency Medicine | DX: M25.569 Pain in unspecified knee (principal) ==

== ENCOUNTER 2023-02-06 07:43 | Emergency (ER) | payer MEDICARE, OTHER, SELFPAY ==
--- NOTE | ~2023-02-06 | XR_ITS ---
EXAMINATION: XR SHOULDER, RIGHT CLINICAL INFORMATION: Right shoulder pain. COMPARISON: None available. TECHNIQUE: AP external rotation, Grashey, scapular Y, and axillary views of the right shoulder. FINDINGS: Glenohumeral and acromioclavicular alignment is anatomic with normal joint space. No displaced fracture or dislocation. No abnormal soft tissue calcifications. XR/XR shoulder RT min 2V IMPRESSION: No acute abnormality.
[2023-02-06 07:49] VITALS: BP 146/61; PULSE 84; RESP 18; TEMP 36.6; O2SAT 97; BMI 68.5
--- NOTE | 2023-02-06 08:10 | PC.NURSE ---
Pt reporting Right shoulder pain. 8.10, pt unable to laterally move arm up without pain. describes it at I feel like my bone is going to break Pt denies any trauma/falls/injury. Stated it started during the middle of the day. Provider bedside at this time
--- NOTE | 2023-02-06 08:35 | ED.EXTPRO ---
HPI - Extremity Problem General Chief complaint: Extremity Injury, Upper Stated complaint: R shoulder pain to elbow Time Seen by Provider: 02/06/23 08:09 Source: patient Limitations: no limitations History of Present Illness HPI Narrative: 60-year-old female presents with right shoulder pain. Patient had recent left shoulder surgery for rotator cuff injury. Today she presents with right shoulder pain that started 2 weeks ago. Has become more severe over the past 2 days. The pain is described as a 10/10. The pain radiates to her elbow. Is worsened by movement and palpation. There is no relieving factors by taking meloxicam. She denies any new injuries. There has been no swelling, pain or redness. Related Data Home Medications Medication Instructions Recorded Confirmed furosemide 20 mg tablet 20 mg PO DAILY 02/04/22 Previous Rx's Medication Instructions Recorded diazepam 5 mg tablet (Valium) 5 mg PO TID PRN muscle spasm #10 02/07/21 tabs lidocaine 4 % topical patch 1 patch topical DAILY PRN pain #10 02/07/21 ea cyclobenzaprine 10 mg tablet 10 mg PO TID PRN muscle pain or 08/21/21 spasm #20 tabs omeprazole 20 mg capsule,delayed 20 mg PO DAILY #30 caps 11/13/21 release morphine 15 mg immediate release 15 mg PO TID PRN pain #10 tabs 12/27/21 tablet diazepam 5 mg tablet (Valium) 5 mg PO TID PRN muscle spasm #10 05/07/22 tabs diclofenac sodium 1 % topical gel 2 g topical QID #100 grams 05/07/22 (Voltaren Arthritis Pain) lidocaine 5 % topical patch 1 patch topical DAILY #30 ea 05/07/22 cyclobenzaprine 10 mg tablet 10 mg PO BEDTIME PRN muscle spasm 07/03/22 #7 tabs lidocaine 5 % topical patch 1 patch topical DAILY PRN pain #15 07/03/22 ea prednisone 20 mg tablet 40 mg PO DAILY 5 days #10 tabs 07/03/22 Allergies Allergy/AdvReac Type Severity Reaction Status Date / Time aspirin [ASA] Allergy Unknown STOMACH Verified 02/06/23 07:55 UPSET avocado [AVOCADO] Allergy Unknown RASH Verified 02/06/23 07:55 latex Allergy Rash Verified 02/06/23 07:55 Review of Systems Review of Systems: CONSTITUTIONAL: Denies weight loss, fever and chills. HEENT: Denies changes in vision and hearing. RESPIRATORY: Denies SOB and cough. CV: Denies palpitations no CP. GI: Denies abdominal pain, nausea, vomiting and diarrhea. : Denies dysuria and urinary frequency. MSK: Denies myalgia + joint pain. SKIN: Denies rash and pruritus. NEUROLOGICAL: Denies headache and syncope. PSYCHIATRIC: Denies recent changes in mood. Denies anxiety and depression. All other ROS are negative unless in HPI PMFSH Past Medical History Medical History Back pain GERD (gastroesophageal reflux disease) HTN (hypertension) Lower extremity edema Surgical History History of abdominoplasty History of cholecystectomy Previous back surgery Family History Family History Father No problems noted. Mother Heart disease Diabetes Arthritis Social History Social History Alcohol intake: never Patient Tobacco Use Status: Never used Tobacco Advance Directives: No Advance Directives Information Provided: No Physical Exam Vital Signs: Vital Signs: Last Vital Signs Temp 97.9 F 02/06/23 07:49 Pulse 84 02/06/23 07:49 Resp 18 02/06/23 07:49 BP 146/61 H 02/06/23 07:49 Pulse Ox 97 02/06/23 07:49 O2 Del Method Room Air 02/06/23 07:49 BMI result Body Mass Index 68.5 GEN: Well developed, no acute distress, alert, oriented HEENT: Normocephalic, atraumatic, normal external ears, nose appears normal Eyes: Normal to appearance Neck: Supple, no lymphadenopathy Respiratory: Talks in complete sentences, no respiratory distress Extremities: No clubbing cyanosis or edema, no swelling or redness of the right shoulder. She has tenderness mildly over the biceps tendon and severe tenderness in the subacromial space. She has limited range of motion secondary to pain. She is neurovascular intact with 2+ radialis pulses Neurologic: No focal neurologic deficits, cranial nerves 2-12 intact, gait normal Skin: No rash Medications Administered Discontinued Medications Generic Name Dose Route Start Last Admin Trade Name Freq PRN Reason Stop Dose Admin Triamcinolone Acetonide 40 mg 02/06/23 08:17 02/06/23 08:49 Triamcinolone Acetonide 40 Mg/Ml Vial INTRAARTIC 02/06/23 08:18 40 mg ONCE ONE Administration Medical Decision Making Medical Decision Making [facility] Narrative: Patient presents with subacute right shoulder pain. Pain is severe. Examination is most consistent with subacromial bursitis. Differential diagnosis includes bursitis, tendonitis, rotator cuff injury, fracture, sprain, strain. Plan will be to image the right shoulder, rule out significant arthritic related issues. Assuming there are no at threaded changes, will consider steroid injection with lidocaine. Patient has already been informed of the risks benefits as well as alternatives. We request that she not receive cortisone but she was okay with other steroid injection Differential Diagnosis Differential Diagnoses: The differential diagnosis associated with the presentation includes (See above) Independent Interpretation I performed an independent interpretation of an: Plain X-Ray (Shoulder right: No acute traumatic injury) Prescription Management I considered prescription management with: Pain Medication Procedures Joint Aspiration/Injection Joint Asp./Inject. 1: Time Out Performed: Yes Side of body: right Joint Aspirated: shoulder Ultrasound Guidance: No Skin Prep: Chlorhexidine Local Anesthetic: lidocaine 1% Amount of anesthesia used (mL): 2 Needle Size Used: 22G Medication Injected, if any: Triamcinolone Acetate (40) Amount of medication injected (mL): 1 Patient Tolerated Procedure: well and no complications Complications: none Discharge Plan Discharge Clinical Impression: Bursitis, subacromial Patient Disposition: Home, Self-Care Instructions: Shoulder Bursitis (ED), Steroid Joint Injection (DC) Prescriptions: No Action lidocaine 4 % adhesive patch,medicated 1 patch topical DAILY PRN (Reason: pain) Qty: 10 0RF Rx Instructions: may leave on for up to 12 hrs diazepam [Valium] 5 mg tablet 5 mg PO TID PRN (Reason: muscle spasm) Qty: 10 0RF cyclobenzaprine 10 mg tablet 10 mg PO TID PRN (Reason: muscle pain or spasm) Qty: 20 0RF omeprazole 20 mg capsule,delayed release(DR/EC) 20 mg PO DAILY Qty: 30 0RF morphine 15 mg tablet 15 mg PO TID PRN (Reason: pain) Qty: 10 0RF Rx Instructions: partial fill okay diazepam [Valium] 5 mg tablet 5 mg PO TID PRN (Reason: muscle spasm) Qty: 10 0RF Rx Instructions: partial fill is okay lidocaine 5 % adhesive patch,medicated 1 patch topical DAILY Qty: 30 0RF Rx Instructions: leave on most painful area for up to 12 hrs diclofenac sodium [Voltaren Arthritis Pain] 1 % gel 2 g topical QID Qty: 100 0RF Rx Instructions: apply to single elbow, wrist or hand; for hand includes palm/fingers/back of hand cyclobenzaprine 10 mg tablet 10 mg PO BEDTIME PRN (Reason: muscle spasm) Qty: 7 0RF lidocaine 5 % adhesive patch,medicated 1 patch topical DAILY PRN (Reason: pain) Qty: 15 0RF Rx Instructions: leave on most painful area for up to 12 hrs prednisone 20 mg tablet 40 mg PO DAILY 5 Days Qty: 10 0RF furosemide 20 mg tablet 20 mg PO DAILY Referrals: Physician,Unknown J [Primary Care Provider] - 5 days (Orthopedist)
[2023-02-06] MEDS: Triamcinolone Acetonide 40 MG/ML VIAL INTRAARTIC (08:49)
== END 2023-02-06 10:00 | disposition home or self-care (01) ==
PROVIDERS: Emergency Provider Emergency Medicine
DX: M75.51 Bursitis of right shoulder (principal)
CPT/HCPCS: 20610; 73030; 99284; J3301

== ENCOUNTER 2024-04-01 15:28 | Inpatient (IN) | payer MEDICARE, OTHER, SELFPAY ==
[2024-04-01] VITALS (7 sets, daily range): BP systolic 126–167; BP diastolic 55–82; PULSE 76–95; RESP 14–20; TEMP 36.3–36.9; O2SAT 97–100; BMI 29.2
--- NOTE | ~2024-04-01 | CT_ITS ---
EXAMINATION: CT ABDOMEN AND PELVIS WITH AND WITHOUT CONTRAST: CT GI BLEEDING STUDY CLINICAL INFORMATION: Reason for Exam GIB. COMPARISON: No pertinent prior studies are available for comparison. TECHNIQUE: Multidetector volumetric imaging was performed from the lung bases to the pubic symphysis before and after the administration of: Intravenous contrast: 80 mL Omnipaque 350 No contrast reaction reported MIP coronal, sagittal and coronal reformatted images were obtained on the technologist workstation. This CT examination was performed using dose optimization techniques as appropriate, variously including the following: *Automated exposure control *Adjustment of mA and/or kV according to patient size (this includes techniques or standardized protocols for targeted exams where dose is matched to indication/reason for exam; i.e. extremities or head) *Use of iterative reconstruction technique Total exam dose-length product 1576 mGy-cm FINDINGS: STOMACH: Moderate-sized hiatal hernia. No abnormal wall thickening or mass. No intraluminal contrast accumulation to suggest hemorrhage. SMALL BOWEL: No abnormal wall thickening or dilation. No intraluminal contrast accumulation to suggest hemorrhage. COLON: There is circumferential bowel wall thickening in the descending and sigmoid colon with surrounding fat stranding, consistent with colitis. No peritoneal free fluid or free air. Stomach, small bowel, and colon are normal in caliber. Moderate size hiatal hernia. Normal appendix. LUNG BASES: No nodules, mass, or focal consolidation. Bilateral breast implants. PLEURA: No pleural effusion. LIVER, GALLBLADDER, AND BILIARY TREE: The liver is normal in size, shape, and attenuation. No focal hepatic lesion or biliary ductal dilatation is present. Gallbladder surgically absent. PANCREAS: Normal; no mass or surrounding fluid. SPLEEN: Normal size. No focal lesion. ADRENAL GLANDS: Normal; no mass. KIDNEYS AND URETERS: The kidneys are normal in size, shape, and attenuation. No hydronephrosis, hydroureter, or calculi. ABDOMINAL WALL: Scar tissue is present along the anterior abdominal wall. Tiny fat-containing umbilical hernia. LYMPHOVASCULAR STRUCTURES: No lymphadenopathy. Mild vascular calcification at the ostium of the major visceral arteries. BLADDER: No focal mass or wall thickening seen. No bladder calculi. PELVIC VISCERA: Uterus appears surgically absent. No adnexal lesions. OSSEOUS STRUCTURES: Left convex lumbar scoliosis. [id number] multilevel degenerative disc disease with mild grade 1 anterolisthesis of L3 on L4 and marked multilevel facet arthropathy. 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 CT/CT gi bleed abd pel wo/w IVcon IMPRESSION: 1. No evidence of active gastrointestinal hemorrhage. 2. Colitis in the descending and sigmoid colon, most likely infectious or inflammatory in nature. 3. Moderate-sized hiatal hernia.
--- NOTE | ~2024-04-01 | CT_ITS ---
EXAMINATION: CT CERVICAL SPINE WITHOUT CONTRAST CLINICAL INFORMATION: Fall. COMPARISON: None available. TECHNIQUE: Noncontrast CT of the cervical spine was performed. This CT examination was performed using dose optimization techniques as appropriate, variously including the following: *Automated exposure control *Adjustment of mA and/or kV according to patient size (this includes techniques or standardized protocols for targeted exams where dose is matched to indication/reason for exam; i.e. extremities or head) *Use of iterative reconstruction technique DLP: 950 mGy-cm FINDINGS: There is reversal of the normal cervical lordosis. The vertebral bodies and posterior elements are otherwise anatomically aligned in the sagittal projection. Vertebral body heights are preserved. There is mild narrowing of the C4-C5 and C5-C6 intervertebral disc spaces. There are endplate sclerotic changes and marginal osteophytes at these levels. The C1-C2 relationship is anatomic. The dens is intact. There is no acute cervical spine fracture. Prevertebral soft tissue is normal in appearance. The visualized lung apices are clear. The thyroid gland is normal in appearance. CT/CT cervical spine wo IV con IMPRESSION: No acute osseous cervical spine abnormality. Fleischner guidelines were followed.
--- NOTE | ~2024-04-01 | CT_ITS ---
EXAMINATION: CT HEAD WITHOUT CONTRAST CLINICAL INFORMATION: Fall. Syncope. COMPARISON: None available. TECHNIQUE: Contiguous axial imaging was performed from the skull base to vertex without intravenous administration of contrast. This CT examination was performed using dose optimization techniques as appropriate, variously including the following: *Automated exposure control *Adjustment of mA and/or kV according to patient size (this includes techniques or standardized protocols for targeted exams where dose is matched to indication/reason for exam; i.e. extremities or head) *Use of iterative reconstruction technique DLP: 950 mGy-cm FINDINGS: There is no acute intracranial hemorrhage. There is no evidence of acute/subacute cerebral or cerebellar infarction. There is no midline shift or mass effect. No extra-axial fluid collection. The ventricles are normal in size. The orbits are symmetric and within normal limits. The mastoid air cells are clear. There is mucosal disease within the left sphenoid sinus. CT/CT head/brain wo IV con IMPRESSION: No acute intracranial abnormality.
--- NOTE | 2024-04-01 16:15 | ED_ITS ---
HPI - General Adult General Chief complaint: General Medical Stated complaint: blood in stool Time Seen by Provider: 04/01/24 17:57 Source: patient Mode of arrival: ambulatory Limitations: no limitations History of Present Illness HPI narrative: This is a 63-year-old woman with a past medical history of hypertension, history of cholecystectomy, history of abdominoplasty who presents for evaluation of hematochezia. Patient reports that she was feeling sweaty while taking a shower last night. She reports feeling lightheaded and then passing out waking up in the shower. She states then having sensation to have a bowel movement. She reports having loose stools and subsequently having bright red blood per rectum. She states no history of colonoscopy. She reports associated abdominal discomfort. She states no nausea or vomiting. She states no emesis. She states she does not take aspirin or any nonsteroidal anti-inflammatory drugs. She states no associated head strike, vision changes or headache. She states no chest pain or dyspnea. She states her neck feels sore. She states her shoulders feel sore as well. Related Data Home Medications ?Medication ?Instructions ?Recorded ?Confirmed furosemide 20 mg tablet 20 mg PO DAILY 02/04/22 Previous Rx's ?Medication ?Instructions ?Recorded diazepam 5 mg tablet (Valium) 5 mg PO TID PRN muscle spasm #10 02/07/21 tabs lidocaine 4 % topical patch 1 patch topical DAILY PRN pain #10 02/07/21 ea cyclobenzaprine 10 mg tablet 10 mg PO TID PRN muscle pain or 08/21/21 spasm #20 tabs omeprazole 20 mg capsule,delayed 20 mg PO DAILY #30 caps 11/13/21 release morphine 15 mg immediate release 15 mg PO TID PRN pain #10 tabs 12/27/21 tablet diazepam 5 mg tablet (Valium) 5 mg PO TID PRN muscle spasm #10 05/07/22 tabs diclofenac sodium 1 % topical gel 2 g topical QID #100 grams 05/07/22 (Voltaren Arthritis Pain) lidocaine 5 % topical patch 1 patch topical DAILY #30 ea 05/07/22 cyclobenzaprine 10 mg tablet 10 mg PO BEDTIME PRN muscle spasm 07/03/22 #7 tabs lidocaine 5 % topical patch 1 patch topical DAILY PRN pain #15 07/03/22 ea prednisone 20 mg tablet 40 mg (2 x 20 mg) PO DAILY 5 days 07/03/22 #10 tabs Allergies Allergy/AdvReac Type Severity Reaction Status Date / Time aspirin [ASA] Allergy Unknown STOMACH Verified 04/01/24 16:21 UPSET avocado [AVOCADO] Allergy Unknown RASH Verified 04/01/24 16:21 latex Allergy Rash Verified 04/01/24 16:21 Review of Systems 2 Review of Systems: ROS as per HPI [facility] Past Medical History Medical History Back pain GERD (gastroesophageal reflux disease) HTN (hypertension) Lower extremity edema Surgical History History of abdominoplasty History of cholecystectomy Previous back surgery Family History Family History Father No problems noted. Mother Heart disease Diabetes Arthritis Social History Social History Alcohol intake: never Patient Tobacco Use Status: Never used Tobacco Smoked in Last 30 Days: No Use of substances other than those prescribed or required for medical reasons: No Advance Directives: No Advance Directives Information Provided: No Patient : No Physical Exam ED Vital Signs: Vital Signs - 24 hr 04/01/24 16:15 04/01/24 19:42 04/01/24 21:54 Temperature 97.3 F 98.4 F Pulse Rate 89 78 76 Respiratory Rate 18 20 Blood Pressure 138/71 126/63 127/67 Pulse Oximetry 97 99 Oxygen Delivery Method Room Air Room Air 04/01/24 21:55 04/01/24 22:00 Temperature Pulse Rate 89 95 Respiratory Rate Blood Pressure 152/62 H 167/82 H Pulse Oximetry Oxygen Delivery Method BMI result Body Mass Index 29.2 Gen: NAD, AOx3 HEENT: NCAT, EOMI, pale conjunctiva CV: RRR, no murmurs appreciated Pulm: CTAB, no increased work of breathing GI: Soft, NTND, no rebound, guarding or rigidity MSK: 2+ bilateral radial pulses, full active range of motion with bilateral shoulder flexion and abduction, no deformity to bilateral upper or lower extremities, no midline vertebral tenderness to palpation, full active range of motion with neck flexion/extension and lateral 45 degree rotation : performed with sheet manager Marah Johnson RN present, no melena, normal external rectal exam without hemorrhoids, no rectal prolapse Neuro: Grossly non focal Course Course Course Narrative: This is a Rapid Medical Exam performed in triage by Gretta Briseno PA-C. Full HPI, ROS and PE to be performed by primary ED provider. 63 year-old F w/ PMHx presenting to the ED c/o neck pain and diaphoresis x last night while doing dishes followed by syncopal episode while in the shower. unknown how long patient was passed out. Admits to abdominal pain, diarrhea and brbpr. denies taking AC. denies CP. denies hitting head or MADDOX PE: pale, abdomen soft & nontender Plan: EKG, labs, UA, Occult stool -1700--CBC hemolyzed, patient difficult stick, will wait until gets pulled back to main ED for re-draw Medications Administered Discontinued Medications Generic Name Dose Route Start Last Admin Trade Name Freq PRN Reason Stop Dose Admin Iohexol 80 ml 04/01/24 21:29 04/01/24 21:30 Iohexol 350 Mg/Ml 100 Ml Infus..Btl IV 04/01/24 21:30 80 ml ONCE ONE Administration Ondansetron HCl 4 mg 04/01/24 21:52 04/01/24 22:05 Ondansetron Hcl 4 Mg/2 Ml Vial IVPUSH 04/01/24 21:53 4 mg ONCE ONE Administration Medical Decision Making Medical Decision Making [facility] Narrative: Differential diagnosis includes, but is not limited to gastroenteritis, inflammatory bowel disease, hemorrhoids, polyps, diverticular bleed, malignancy. At time of reexamination, patient states she has had no further episodes of red blood per rectum. She states she has had a bowel movement while here in the ED. Case and management are discussed with oncoming physician Dr. Hilliard. Care is transitioned to Dr. Hilliard with disposition pending CT imaging and patient reevaluation. Patient's CT scan showed colitis H&H stable patient had more than 20 times in last 24 hours fresh blood per rectum patient feels cramping pain in the abdomen and then she goes to bathroom and just the blood comes out no diarrhea/stool will admit patient patient never had colonoscopy in the past no history of rectal bleed in the past Admission/Observation Consideration of admission/observation: Escalation of care including admission/observation considered Lab Data [facility] Lab Attestation statement: I reviewed the patient's lab results. I reviewed and interpreted patient's labs as below, which are non-contributory and reassuring. Hemoglobin is stable at 13.1. 04/01/24 19:05 04/01/24 16:39 Labs: Lab Results 04/01/24 04/01/24 04/01/24 Range/Units 16:39 19:05 20:36 WBC 13.4 H (4.8-10.8) X10*3/uL RBC 4.39 (4.20-5.50) X10*6/uL Hgb 13.1 (12.0-16.0) g/dl Hct 38.8 (37.0-47.0) % MCV 88.4 (80.0-98.0) fL MCH 29.8 (27.0-33.0) pg MCHC 33.8 (31.0-35.0) g/dl RDW 13.1 (11.0-16.0) % Plt Count 177 (160-400) X10*3/uL MPV 10.3 (9.4-12.3) fL Immature Gran % (Auto) 0.2 (0.0-0.4) % Neut % (Auto) 77.6 H (45-73) % Lymph % (Auto) 16.8 L (20-40) % [place] % (Auto) 5.1 (2-11) % Eos % (Auto) 0.1 (0-4) % Baso % (Auto) 0.2 (0-2) % Lymph # (Auto) 2.3 (1.2-4.9) X10*3/uL [place] # (Auto) 0.7 (0.1-1.2) X10*3/uL Eos # (Auto) 0.0 (0.0-0.4) X10*3/uL Baso # (Auto) 0.0 (0.0-0.2) X10*3/uL Abs Immat Gran (auto) 0.03 (0.00-0.03) X10*3/uL Absolute Neuts (auto) 10.4 H (2.0-8.3) x10*3/uL Absolute Nucleated RBC 0.000 (0.0-0.012) X10*3/uL Nucleated RBC % (auto) 0.0 (0.0-0.2) /100WBC PT 10.6 L (11.1-13.3) SEC INR 0.9 (0.9-1.1) Sodium 140 (135-145) mmol/L Potassium 4.1 (3.3-5.1) mmol/L Chloride 106 (96-108) mmol/L Carbon Dioxide 25 (22-29) mmol/L Anion Gap 13 (12-20) BUN 32 H (9-16) mg/dL Creatinine 1.03 (0.5-1.4) mg/dL Estim Creat Clear Calc 56.2 Estimated GFR 54 Random Glucose 106 (60-115) mg/dL Calcium 9.5 (8.4-10.2) mg/dL Magnesium 2.2 (1.6-2.6) mg/dL Total Bilirubin 0.5 (0.0-1.0) mg/dL Direct Bilirubin 0.1 (0.0-0.5) mg/dL AST 22 (5-31) U/L ALT 14 (0-31) U/L Alkaline Phosphatase 85 (39-117) U/L Troponin I High Sens < 2.7 (<3.5-17.0) ng/L Total Protein 7.7 (6.5-8.0) g/dL Albumin 4.2 (3.5-5.0) g/dL Lipase 13 (8-78) U/L Influenza Type A (PCR) NEGATIVE (Negative) Influenza Type B (PCR) NEGATIVE (Negative) RSV RNA Qual (PCR) NEGATIVE (Negative) SARS-CoV-2 RNA (RT-PCR) NEGATIVE (Negative) Blood Type A Positive Antibody Screen NEGATIVE Radiology Impression Discussion of test interpretation with radiology: I have reviewed the radiologist's reading. Radiologist Impression: CT/CT gi bleed abd pel wo/w IVcon IMPRESSION: 1. No evidence of active gastrointestinal hemorrhage. 2. Colitis in the descending and sigmoid colon, most likely infectious or inflammatory in nature. 3. Moderate-sized hiatal hernia. Discharge Plan Discharge Clinical Impression: BRBPR (bright red blood per rectum) Patient Disposition: Admitted As Inpatient Print Language: Wolof
--- NOTE | 2024-04-01 16:18 | ECG_ITS ---
Test Reason : SYNCOPY Blood Pressure : / mmHG Vent. Rate : 084 BPM Atrial Rate : 084 BPM P-R Int : 148 ms QRS Dur : 084 ms QT Int : 384 ms P-R-T Axes : 057 020 000 degrees QTc Int : 453 ms Normal sinus rhythm T wave abnormality, consider inferior ischemia Abnormal ECG When compared with ECG of 21-AUG-2021 16:09, No significant change was found Referred By: Gretta Briseno Electronically Signed By:LORE GONZALEZ
[2024-04-01 16:56] LABS: INTERNATIONAL NORM RATIO 0.9 (0.9-1.1); Prothrombin Time 10.6 SEC (11.1-13.3)
[2024-04-01 17:27] LABS: Influenza A PCR NEGATIVE (Negative); Influenza B PCR NEGATIVE (Negative); Resp Syncy Virus RNA Qual PCR NEGATIVE (Negative); SARS COV2 PCR INHOUSE NEGATIVE (Negative)
[2024-04-01 17:38] LABS: Alanine Aminotransferase 14 U/L (0-31); Albumin Level 4.2 g/dL (3.5-5.0); Alkaline Phosphatase 85 U/L (39-117); Anion Gap 13 (12-20); Aspartate Amino Transferase 22 U/L (5-31); Bilirubin Direct 0.1 mg/dL (0.0-0.5); Bilirubin Total 0.5 mg/dL (0.0-1.0); Blood Urea Nitrogen 32 mg/dL (9-16); Calcium 9.5 mg/dL (8.4-10.2); Carbon Dioxide 25 mmol/L (22-29); Chloride 106 mmol/L (96-108); Creatinine Clr Calc Pharmacy 56.2; Estimated Glomerular Filt Rate 54; Glucose Random 106 mg/dL (60-115); Lipase 13 U/L (8-78); Magnesium 2.2 mg/dL (1.6-2.6); Potassium 4.1 mmol/L (3.3-5.1); Sodium 140 mmol/L (135-145); Total Protein 7.7 g/dL (6.5-8.0)
[2024-04-01 17:41] LABS: Troponin-I High Sensitivity < 2.7 ng/L (<3.5-17.0)
[2024-04-01 19:11] LABS: Basophils Percent Auto 0.2 % (0-2); Eosinophils Percent Auto 0.1 % (0-4); Hematocrit 38.8 % (37.0-47.0); Hemoglobin 13.1 g/dl (12.0-16.0); Imm Gran Abs Auto 0.03 X10*3/uL (0.00-0.03); Imm Gran Pct Auto 0.2 % (0.0-0.4); Lymphocytes Absolute Auto 2.3 X10*3/uL (1.2-4.9); Lymphocytes Percent Auto 16.8 % (20-40); Mean Corpuscular HGB Conc 33.8 g/dl (31.0-35.0); Mean Corpuscular Hemoglobin 29.8 pg (27.0-33.0); Mean Corpuscular Volume 88.4 fL (80.0-98.0); Mean Platelet Volume 10.3 fL (9.4-12.3); Monocytes Absolute Auto 0.7 X10*3/uL (0.1-1.2); Monocytes Percent Auto 5.1 % (2-11); Neutrophils Absolute Auto 10.4 x10*3/uL (2.0-8.3); Neutrophils Percent Auto 77.6 % (45-73); Platelet Count 177 X10*3/uL (160-400); Red Blood Count 4.39 X10*6/uL (4.20-5.50); Red Cell Distribution Width 13.1 % (11.0-16.0); White Blood Count 13.4 X10*3/uL (4.8-10.8)
--- NOTE | 2024-04-01 20:23 | MHC.EDTECH ---
Lab/Blood bank called this tech to state blood bank band was not scanned and that the blood draw would not be accepted. This tech stated the system prompts you to scan the blod bank band first and confirm number on band is correct to number shown on screen, after this confirmation the next prompt you are able to scan the blood tube sticker, all scans performed to complete the process of the type and screen. The process was saved and blood was sent immediately to the lab/blood bank. All orders for type and screen were completed on the tracker after the save button was pressed. This tech told the lab that the patient is a difficult stick with multiple attempts from multiple ED staff trying, this tech request phlebotomy to draw the patient blood at this time. Phlebotomy will be coming to ED to draw this patient. Patient RN aware and human resources professional aware of situation
[2024-04-01 20:33] LABS: MANUAL DIFF FLAG NO
[2024-04-01] MEDS: iohexoL 350 MG/ML 100 ML INFUS..BTL 80 ML IV (21:30)
[2024-04-01] MEDS: ondansetron HCL 4 MG/2 ML VIAL IVPUSH (22:05)
[2024-04-01 22:48] LABS: OBS Int Ctl Valid YES; OBS1 POSITIVE (NEGATIVE)
[2024-04-01 23:13] LABS: Hematocrit 35.9 % (37.0-47.0); Hemoglobin 12.1 g/dl (12.0-16.0)
--- NOTE | 2024-04-01 23:23 | P.HPHOSP_ITS ---
History of Present Illness Date of Service: 04/01/24 Chief Complaint: Rectal bleeding This is a 63-year-old female with pertinent history of mood disorder, lymphedema, hypertension who presents to the emergency department for evaluation of bright red blood per rectum. Patient states it began 1 day prior to presentation. She feels abdominal discomfort and soon after she passes blood through rectum. Denies stool mixed with blood and states it is just bright red blood. No fever, nausea or vomiting. This has never happened before. Not on aspirin or any anticoagulants. Number has had a colonoscopy in the past. Patient states she has had about 20 episodes of passing bright red blood through rectum since yesterday. No chest discomfort, palpitations, shortness of breath, changes in urinary habits. In the emergency department, imaging with colitis Review of Systems 2 Constitutional: Constitutional: Reports no additional constitutional complaints Cardiovascular: Cardiovascular: Reports no additional cardiovascular complaints Respiratory: Respiratory: Reports no additional respiratory complaints Gastrointestinal: Gastrointestinal: Reports hematochezia Genitourinary: Genitourinary: Reports no additional female genitourinary complaints [facility] Medical History Lower extremity edema HTN (hypertension) GERD (gastroesophageal reflux disease) Back pain Family History Father No problems noted. Mother Heart disease Diabetes Arthritis Surgical History History of abdominoplasty History of cholecystectomy Previous back surgery Social History Alcohol intake: never Patient Tobacco Use Status: Never used Tobacco Smoked in Last 30 Days: No Use of substances other than those prescribed or required for medical reasons: No Advance Directives: No Advance Directives Information Provided: No Patient : No Meds Allergies Allergy/AdvReac Type Severity Reaction Status Date / Time aspirin [ASA] Allergy Unknown STOMACH Verified 04/01/24 16:21 UPSET avocado [AVOCADO] Allergy Unknown RASH Verified 04/01/24 16:21 latex Allergy Rash Verified 04/01/24 16:21 Home Medications ?Medication ?Instructions ?Recorded ?Confirmed ?Last Taken ?Type furosemide 20 mg tablet 20 mg PO DAILY 06/21/22 Unknown History Physical Exam 2 Vital Signs and Narrative: Vital Signs: Last Vital Signs Temp 98.4 F 04/01/24 19:42 Pulse 95 04/01/24 22:00 Resp 20 04/01/24 19:42 BP 167/82 H 04/01/24 22:00 Pulse Ox 99 04/01/24 19:42 O2 Del Method Room Air 04/01/24 19:42 BMI result Body Mass Index 29.2 Middle-aged female lying in bed in no distress Neck supple, no JVD Regular rate and rhythm, S1-S2 heard Regular breath sounds bilaterally, no wheezing or crackles appreciated Abdomen soft nontender, no guarding, no rigidity Patient is awake, alert and oriented to self, place, time and person ; no focal motor deficit Psych: Normal mood No pedal edema Results Labs 04/01/24 22:59 04/01/24 16:39 Labs: Laboratory Results - last 24 hr 04/01/24 04/01/24 04/01/24 16:39 19:05 20:36 MCV 88.4 MCH 29.8 MCHC 33.8 RDW 13.1 Plt Count 177 MPV 10.3 Immature Gran % (Auto) 0.2 Neut % (Auto) 77.6 H Lymph % (Auto) 16.8 L [place] % (Auto) 5.1 Eos % (Auto) 0.1 Baso % (Auto) 0.2 Lymph # (Auto) 2.3 [place] # (Auto) 0.7 Eos # (Auto) 0.0 Baso # (Auto) 0.0 Abs Immat Gran (auto) 0.03 Absolute Neuts (auto) 10.4 H Absolute Nucleated RBC 0.000 Nucleated RBC % (auto) 0.0 PT 10.6 L INR 0.9 Anion Gap 13 Estim Creat Clear Calc 56.2 Estimated GFR 54 Random Glucose 106 Calcium 9.5 Magnesium 2.2 Total Bilirubin 0.5 Direct Bilirubin 0.1 AST 22 ALT 14 Alkaline Phosphatase 85 Troponin I High Sens < 2.7 Total Protein 7.7 Albumin 4.2 Lipase 13 Stool Occult Blood Influenza Type A (PCR) NEGATIVE Influenza Type B (PCR) NEGATIVE RSV RNA Qual (PCR) NEGATIVE SARS-CoV-2 RNA (RT-PCR) NEGATIVE Blood Type A Positive Antibody Screen NEGATIVE 04/01/24 22:42 MCV MCH MCHC RDW Plt Count MPV Immature Gran % (Auto) Neut % (Auto) Lymph % (Auto) [place] % (Auto) Eos % (Auto) Baso % (Auto) Lymph # (Auto) [place] # (Auto) Eos # (Auto) Baso # (Auto) Abs Immat Gran (auto) Absolute Neuts (auto) Absolute Nucleated RBC Nucleated RBC % (auto) PT INR Anion Gap Estim Creat Clear Calc Estimated GFR Random Glucose Calcium Magnesium Total Bilirubin Direct Bilirubin AST ALT Alkaline Phosphatase Troponin I High Sens Total Protein Albumin Lipase Stool Occult Blood POSITIVE Influenza Type A (PCR) Influenza Type B (PCR) RSV RNA Qual (PCR) SARS-CoV-2 RNA (RT-PCR) Blood Type Antibody Screen Imaging Radiologist's Impressions: Impressions Cervical Spine CT 04/01/24 21:15 IMPRESSION: No acute osseous cervical spine abnormality. Fleischner guidelines were followed. Head CT 04/01/24 21:15 IMPRESSION: No acute intracranial abnormality. Abdomen/Pelvis CT 04/01/24 21:25 IMPRESSION: 1. No evidence of active gastrointestinal hemorrhage. 2. Colitis in the descending and sigmoid colon, most likely infectious or inflammatory in nature. 3. Moderate-sized hiatal hernia. Assessment and Plan (1) BRBPR (bright red blood per rectum): Status: Acute Plan This is a 63-year-old female with pertinent history of mood disorder, lymphedema, hypertension who presents to the emergency department for evaluation of bright red blood per rectum. #. Acute GI bleed, hematochezia: Will admit patient with cardiac monitoring. Imaging with colitis and patient does meet SIRS criteria, initiating empiric IV ceftriaxone and Flagyl. Consulting Gastroenterology, appreciate assistance. Closely monitor H&H. Resuscitated with IV crystalloids and obtaining lactic acid with blood cultures. #. Hypertension: Hold home antihypertensives in the setting of GI bleed Med rec pending DVT prophylaxis: Mechanical Full code Admit as inpatient and will require two night minimum hospital stay for evaluation of GI bleed (as above), which is not possible in a lesser acute setting. Specialist consult pending Quality Stroke Does the patient have a stroke diagnosis?: No VTE Prior VTE?: No VTE Risk Level:: Medical - moderate - high VTE Device Contraindication: N/A - Device Ordered VTE Drug Contraindication: Treatment Not Indicated
[2024-04-01] MEDS: cefTRIAXone sodium 1 GM in 0.9 % Sodium Chloride 50 ML IV (23:52)
--- NOTE | 2024-04-01 23:54 | PC.NURSE ---
Pt refusing the remainder of ordered blood working including BCX x 2. This RN speaking directly to Denny as ABX were ordered. Per Denny, okay to administer ABX even though BCX have not been drawn as pt is refusing. Pt states she has been stuck multiple times and is not willing to agree to anymore attempts for lab work. Pt resting in bed, aware of plan to admit.
[2024-04-02] MEDS: metroNIDAZOLE/NS 500 MG/100 ML PIGGYBACK 100 MG IV ×2 (01:06→08:32)
[2024-04-02] MEDS: Lactated Ringers 1,000 ML 999 ML IV (02:34)
[2024-04-02 06:20] VITALS: BP 125/54; PULSE 72; RESP 14; TEMP 36.8; O2SAT 98
[2024-04-02 06:40] LABS: Appearance Urine Clear; Color Urine Yellow; Glucose Urine UA Negative (Negative); Leukocyte Esterase Urine Small (1+) (Negative); Nitrite Urine Positive (Negative); PH 6.5 (5.0-9.0); Specific Gravity - Urine >= 1.030 (1.005-1.025); UMIC TRIGGER UACC YES; Urine Blood Trace (Negative); Urine Ketones Negative (Negative); Urine Protein Trace mg/dL (Neg-Trace)
[2024-04-02 06:45] LABS: Bacteria Urine 1+ (None Seen); Hyaline Casts Urine 0-2 /LPF (0-2); RBC Urine 0-2 /HPF (0-2); UACC Culture Trigger YES; WBC Urine >50 /HPF (0-5)
--- NOTE | 2024-04-02 07:39 | PC.NURSE ---
pts home meds lisinopril and hydrochlorothiazide sent to pharmacy
[2024-04-02] MEDS: 0.9 % Sodium Chloride Flush 3 ML SYRINGE IVFLUSH (08:32)
--- NOTE | 2024-04-02 08:44 | P.PNIM_ITS ---
Subjective Subjective Date of Service: 04/02/24 Review of Systems Follow up colitis, GI bleed doing well, no pain or further bleeding Physical Exam 2 Vital Signs: Vital Signs: Last Vital Signs Temp 98.3 F 04/02/24 06:20 Pulse 72 04/02/24 06:20 Resp 14 04/02/24 06:20 BP 125/54 L 04/02/24 06:20 Pulse Ox 98 04/02/24 06:20 O2 Del Method Room Air 04/02/24 06:20 BMI result Body Mass Index 29.2 Appearing in no acute distress lung sounds are clear to auscultation heart regular rate rhythm, clear S1, S2 positive bowel sounds, abdomen is soft, nontender neuro patient is alert x3, no focal deficits Objective Data Active Medications Acetaminophen (Acetaminophen 325 Mg Tablet) 650 mg PO Q6H PRN PRN Reason: Pain, Mild (Pain Scale 1-3), fever or headache Calcium Carbonate (Calcium Carbonate 750 Mg Tab.Chew) 750 mg PO Q4H PRN PRN Reason: Heartburn Ceftriaxone Sodium 1 gm/ (Sodium Chloride) 50 mls @ 100 mls/hr IV 2200 [facility] Last Infusion: 04/02/24 00:30 Dose: Infused Documented By: DEMETRIS Metronidazole (Flagyl) 500 mg in 100 mls @ 100 mls/hr IV Q8H [facility] Last Admin: 04/02/24 08:32 Dose: 100 mls/hr Documented By: ESTHER Magnesium Hydroxide (Milk Of Magnesia 30 Ml Oral.Susp) 30 ml PO DAILY PRN PRN Reason: Constipation Melatonin (Melatonin 3 Mg Tablet) 6 mg PO BEDTIME PRN PRN Reason: Insomnia Ondansetron HCl (Ondansetron Hcl 4 Mg/2 Ml Vial) 4 mg IVPUSH Q8H PRN PRN Reason: Nausea and Vomiting Sodium Chloride (0.9 % Sodium Chloride Flush 3 Ml Syringe) 3 ml IVFLUSH QSHIFT [facility] Last Admin: 04/02/24 08:32 Dose: 3 ml Documented By: ESTHER Labs 04/01/24 22:59 04/01/24 16:39 Labs: Laboratory Results - last 24 hr 04/01/24 04/01/24 04/01/24 16:39 19:05 20:36 MCV 88.4 MCH 29.8 MCHC 33.8 RDW 13.1 Plt Count 177 MPV 10.3 Immature Gran % (Auto) 0.2 Neut % (Auto) 77.6 H Lymph % (Auto) 16.8 L Dickinson % (Auto) 5.1 Eos % (Auto) 0.1 Baso % (Auto) 0.2 Lymph # (Auto) 2.3 Dickinson # (Auto) 0.7 Eos # (Auto) 0.0 Baso # (Auto) 0.0 Abs Immat Gran (auto) 0.03 Absolute Neuts (auto) 10.4 H Absolute Nucleated RBC 0.000 Nucleated RBC % (auto) 0.0 PT 10.6 L INR 0.9 Anion Gap 13 Estim Creat Clear Calc 56.2 Estimated GFR 54 Random Glucose 106 Calcium 9.5 Magnesium 2.2 Total Bilirubin 0.5 Direct Bilirubin 0.1 AST 22 ALT 14 Alkaline Phosphatase 85 Troponin I High Sens < 2.7 Total Protein 7.7 Albumin 4.2 Lipase 13 Urine Color Urine Appearance Urine pH Ur Specific [place] Urine Protein Urine Glucose (UA) Urine Ketones Urine Blood Urine Nitrite Ur Leukocyte Esterase Urine RBC Urine WBC Ur Squamous Epith Cells Urine Bacteria Hyaline Casts Stool Occult Blood Influenza Type A (PCR) NEGATIVE Influenza Type B (PCR) NEGATIVE RSV RNA Qual (PCR) NEGATIVE SARS-CoV-2 RNA (RT-PCR) NEGATIVE Blood Type A Positive Antibody Screen NEGATIVE 04/01/24 04/02/24 22:42 06:33 MCV MCH MCHC RDW Plt Count MPV Immature Gran % (Auto) Neut % (Auto) Lymph % (Auto) Dickinson % (Auto) Eos % (Auto) Baso % (Auto) Lymph # (Auto) Dickinson # (Auto) Eos # (Auto) Baso # (Auto) Abs Immat Gran (auto) Absolute Neuts (auto) Absolute Nucleated RBC Nucleated RBC % (auto) PT INR Anion Gap Estim Creat Clear Calc Estimated GFR Random Glucose Calcium Magnesium Total Bilirubin Direct Bilirubin AST ALT Alkaline Phosphatase Troponin I High Sens Total Protein Albumin Lipase Urine Color Yellow Urine Appearance Clear Urine pH 6.5 Ur Specific [place] >= 1.030 H Urine Protein Trace Urine Glucose (UA) Negative Urine Ketones Negative Urine Blood Trace H Urine Nitrite Positive H Ur Leukocyte Esterase Small (1+) H Urine RBC 0-2 Urine WBC >50 H Ur Squamous Epith Cells 6-10 Urine Bacteria 1+ Hyaline Casts 0-2 Stool Occult Blood POSITIVE Influenza Type A (PCR) Influenza Type B (PCR) RSV RNA Qual (PCR) SARS-CoV-2 RNA (RT-PCR) Blood Type Antibody Screen Assessment and Plan (1) BRBPR (bright red blood per rectum): Status: Acute Plan 63-year-old female with pertinent history of mood disorder, lymphedema, hypertension who presents to the emergency department for evaluation of bright red blood per rectum. Acute GI bleed, hematochezia Imaging with colitis and patient does meet SIRS criteria continue IV ceftriaxone and Flagyl. Gastroenterology consultation pending HH stable Resuscitated with IV crystalloids and obtaining lactic acid with blood cultures. PPI Hypertension stable blood pressure Hold home antihypertensives in the setting of GI bleed DVT prophylaxis: Mechanical Attending Dr. Jc Full code Quality Stroke Does the patient have a stroke diagnosis?: No VTE Prior VTE?: No VTE Risk Level:: Medical - moderate - high VTE Device Contraindication: N/A - Device Ordered VTE Drug Contraindication: Treatment Not Indicated
[2024-04-02 09:46] VITALS: BP 111/62; PULSE 74; RESP 20; TEMP 36.7; O2SAT 97
--- NOTE | 2024-04-02 12:06 | PHA.MEDREC ---
Addendum entered by Carmelo Woodruff RPh 04/02/24 12:26: Reviewed by [facility] Original Note: Pharmacy Consult ? Medication Reconciliation Pharmacy has completed the medication reconciliation. Spoke with patient to confirm medications. She had a list from home. She gets her medications from [facility] which is different than [facility] and she is not in the [place] system. [facility] pharmacy is closed on weekends. Their phone number is [phone]. I was not able to confirm the ones from that pharmacy but I entered them in the way she confirms she takes them. She did bring in lisinopril and HCTZ bottles and the meloxicam has claims from [employer]. She has gabapentin 600mg BID at home but has not taken it in 2 weeks. She last took her blood pressure meds and meloxicam on Thursday.
[2024-04-02] MEDS: Omeprazole 20 MG CAPSULE.DR PO (12:19)
[2024-04-02 14:45] VITALS: BP 137/71; PULSE 76; RESP 20; TEMP 36.7; O2SAT 100
--- NOTE | 2024-04-02 16:53 | PM.DS ---
DS: Providers Provider Date of Service: 04/02/24 Date of admission: 04/01/24 23:21 Primary care physician: Unknown Physician Consults: 04/01/24 23:32 Consult to Gastroenterology Routine Consulting Provider: Alfonzo Rodas Reason for consultation: GI bleed DS: Diagnosis Discharge Diagnosis (1) BRBPR (bright red blood per rectum): Status: Acute DS: Summary Hospital Course Hospital Course: History and physical as per admitting provider. This is a 63-year-old female with pertinent history of mood disorder, lymphedema, hypertension who presents to the emergency department for evaluation of bright red blood per rectum. Patient states it began 1 day prior to presentation. She feels abdominal discomfort and soon after she passes blood through rectum. Denies stool mixed with blood and states it is just bright red blood. No fever, nausea or vomiting. This has never happened before. Not on aspirin or any anticoagulants. Number has had a colonoscopy in the past. Patient states she has had about 20 episodes of passing bright red blood through rectum since yesterday. No chest discomfort, palpitations, shortness of breath, changes in urinary habits. In the emergency department, imaging with colitis. 63-year-old woman admitted for acute GI bleed, hematochezia and colitis. Patient was started on IV ceftriaxone and Flagyl, Gastroenterology consultation placed. Clear liquid diet ordered and patient is started on PPI. Unfortunately patient decided to leave against medical advice stating that she felt like no one was doing anything for her. She was aware that the wound/ostomy nurse was going to be seeing her, she was started on a clear liquid diet, antibiotics for the colitis and she would be spending the night. She declined to stay in the hospital. Levaquin and Flagyl were sent to her pharmacy and she should follow up with her primary care provider for further workup of this colitis. The patient has decided to leave against medical advice. She has normal mental status and adequate capacity to make medical decisions. The patient refuses hospital admission and wants to be discharged. The risks have been explained to the patient including worsening illness, chronic pain, permanent disability and even . The benefits of admission have also been explained including the availability of nurses, medical providers, close monitoring, IV medications, diagnostic imaging, treatments, etc.. The patient was able to understand and state the risks and benefits of hospital admission. The patient was given opportunities to ask questions prior to leaving. Time Attestation Discharge Coordination Time (in mins): 30 Quality: Safe Use of Opioids Does Pt have an Active Cancer Diagnosis on the Problem List?: No Quality: Stroke Does the patient have a stroke diagnosis?: No Physical Exam Vital Signs: Vital Signs: Last Vital Signs Temp 98.1 F 04/02/24 14:45 Pulse 76 04/02/24 14:45 Resp 20 04/02/24 14:45 BP 137/71 04/02/24 14:45 Pulse Ox 100 04/02/24 14:45 O2 Del Method Room Air 04/02/24 14:45 BMI result Body Mass Index 29.2 Declined DS: Data Data Completed and Pending Labs on day of discharge: Laboratory Results - last 24 hr 04/01/24 04/01/24 04/01/24 16:39 19:05 20:36 WBC 13.4 H RBC 4.39 Hgb 13.1 Hct 38.8 MCV 88.4 MCH 29.8 MCHC 33.8 RDW 13.1 Plt Count 177 MPV 10.3 Immature Gran % (Auto) 0.2 Neut % (Auto) 77.6 H Lymph % (Auto) 16.8 L [place] % (Auto) 5.1 Eos % (Auto) 0.1 Baso % (Auto) 0.2 Lymph # (Auto) 2.3 [place] # (Auto) 0.7 Eos # (Auto) 0.0 Baso # (Auto) 0.0 Abs Immat Gran (auto) 0.03 Absolute Neuts (auto) 10.4 H Absolute Nucleated RBC 0.000 Nucleated RBC % (auto) 0.0 PT 10.6 L INR 0.9 Sodium 140 Potassium 4.1 Chloride 106 Carbon Dioxide 25 Anion Gap 13 BUN 32 H Creatinine 1.03 Estim Creat Clear Calc 56.2 Estimated GFR 54 Random Glucose 106 Calcium 9.5 Magnesium 2.2 Total Bilirubin 0.5 Direct Bilirubin 0.1 AST 22 ALT 14 Alkaline Phosphatase 85 Troponin I High Sens < 2.7 Total Protein 7.7 Albumin 4.2 Lipase 13 Urine Color Urine Appearance Urine pH Ur Specific [place] Urine Protein Urine Glucose (UA) Urine Ketones Urine Blood Urine Nitrite Ur Leukocyte Esterase Urine RBC Urine WBC Ur Squamous Epith Cells Urine Bacteria Hyaline Casts Stool Occult Blood Influenza Type A (PCR) NEGATIVE Influenza Type B (PCR) NEGATIVE RSV RNA Qual (PCR) NEGATIVE SARS-CoV-2 RNA (RT-PCR) NEGATIVE Blood Type A Positive Antibody Screen NEGATIVE 04/01/24 04/01/24 04/02/24 22:42 22:59 06:33 WBC RBC Hgb 12.1 Hct 35.9 L MCV MCH MCHC RDW Plt Count MPV Immature Gran % (Auto) Neut % (Auto) Lymph % (Auto) [place] % (Auto) Eos % (Auto) Baso % (Auto) Lymph # (Auto) [place] # (Auto) Eos # (Auto) Baso # (Auto) Abs Immat Gran (auto) Absolute Neuts (auto) Absolute Nucleated RBC Nucleated RBC % (auto) PT INR Sodium Potassium Chloride Carbon Dioxide Anion Gap BUN Creatinine Estim Creat Clear Calc Estimated GFR Random Glucose Calcium Magnesium Total Bilirubin Direct Bilirubin AST ALT Alkaline Phosphatase Troponin I High Sens Total Protein Albumin Lipase Urine Color Yellow Urine Appearance Clear Urine pH 6.5 Ur Specific [place] >= 1.030 H Urine Protein Trace Urine Glucose (UA) Negative Urine Ketones Negative Urine Blood Trace H Urine Nitrite Positive H Ur Leukocyte Esterase Small (1+) H Urine RBC 0-2 Urine WBC >50 H Ur Squamous Epith Cells 6-10 Urine Bacteria 1+ Hyaline Casts 0-2 Stool Occult Blood POSITIVE Influenza Type A (PCR) Influenza Type B (PCR) RSV RNA Qual (PCR) SARS-CoV-2 RNA (RT-PCR) Blood Type Antibody Screen Discharge Plan Discharge Anticipated Discharge Date/Time: 04/02/24 16:51 Patient Disposition: Left Against Medical Advice Discharge Diagnosis: Colitis Bright red blood per rectum Referrals: Alfonzo Rodas MD [Physician] - 1 Week Discharge Medications: New levofloxacin 750 mg tablet 750 mg PO DAILY Qty: 10 0RF metronidazole 500 mg tablet 500 mg PO Q8H Qty: 30 0RF Continued meloxicam 15 mg tablet 15 mg PO DAILY PRN (Reason: pain) lisinopril 10 mg tablet 10 mg PO DAILY lidocaine 5 % Adhesive Patch,Medicated 1 patch TOPICAL DAILY PRN (Reason: Pain) Rx Instructions: leave on most painful area for up to 12 hrs tramadol 50 mg Tablet 50 mg PO DAILY PRN (Reason: lower back pain) sulindac 200 mg Tablet 200 mg PO BID PRN (Reason: Pain) omeprazole 20 mg capsule,delayed release(DR/EC) 20 mg PO DAILY@0630 Premarin 0.625 mg Tablet 0.625 mg PO BEDTIME Rx Instructions: cyclically hydrochlorothiazide 12.5 mg Capsule 12.5 mg PO DAILY Discharge Orders: Discharge Order (Routine); Ordered 04/02/24 Ordered By: Ruthann Robin Diet: Advance to usual diet Activity on Discharge: As tolerated Print Language: Indonesian Care Plan Goals: The patient has decided to leave against medical advice. She has normal mental status and adequate capacity to make medical decisions. The patient refuses hospital admission and wants to be discharged. The risks have been explained to the patient including worsening illness, chronic pain, permanent disability and even . The benefits of admission have also been explained including the availability of nurses, medical providers, close monitoring, IV medications, diagnostic imaging, treatments, etc.. The patient was able to understand and state the risks and benefits of hospital admission. The patient was given opportunities to ask questions prior to leaving. Health Concerns: Colitis Bright red blood per rectum Plan of Treatment: Follow-up with primary care provider for follow-up of colitis Take all medications as prescribed Assessment: See discharge summary
--- NOTE | 2024-04-02 17:16 | PC.NURSE ---
Patient left AMA, forms signed, provider notified, patient educated on danger of leaving before completing treatment. Patient ambulate off the unit.
--- OUTSIDE RECORDS SUMMARY | 2024-04-06 06:33 | XMS_ITS | Continuity of Care Document ---
Author Organization [facility] [address], [address] [place] [address]- Care Team Providers Care Mortgage Loan Officer Originator Name Role Phone Jose Ramon Turner Primary Care Physician Encounter [facility] Date(s): 06/24/22 - 07/01/[address], [address] [place] [address]- Attending Physician: Gordo Harmon MD Referring Physician: Ambrocio PAPER CORE MACHINE OPERATOR, Alejandra Aldridge Allergies, Adverse Reactions, Alerts Substance Reaction Severity Status aspirin rash Active Latex rash/ red pimples on skin Ac tive Avocado rash Active Medications gabapentin 600 mg oral tablet 1 tablet = 600 mg, By Mouth, 2 times a day, 0 Refills, Maintenance, 11/24/19 16:14:00 EDT Start Date: 11/24/19 Status: Ordered meloxicam 15 mg oral tablet 1 tablet = 15 mg, By Mouth, Daily, 0 Refills, Maintenance, 06/24/22 9:23:00 EST, Partial fill upon patient request if the prescription is for a schedule II opioid drug. Start Date: 06/24/22 Status: Ordered Omeprazole By Mouth, Daily, 0 Refills, Maintenance, 06/24/22 9:23:00 EST, Partial fill upon patient request ifthe prescription is for a schedule II opioid drug. Start Date: 06/24/22 Status: Ordered Premarin 0.625 mg oral tablet 1 tablet = 0.625 mg, By Mouth, Daily at bedtime, 0 Refills, Maintenance, 11/24/19 16:15:00 EDT Start Date: 11/24/19 Status: Ordered sulindac 200 mg oral tablet 1 tablet = 200 mg, By Mouth, 2 times a day, 0 Refills, Maintenance, 11/24/19 16:14:00 EDT Start Date: 11/24/19 Status: Ordered Topamax 25 mg oral tablet See Instructions, 1 tablet By Mouth in am- 2 tabs in pm, 0 Refills, Maintenance, 11/24/19 16:16:00 EDT Start Date: 11/24/19 Status: Ordered Problem List Condition Confirmation Course Effective Dates Status Health St atus Informant Obese class I Confirmed Active Vital Signs Most recent to oldest [Reference Range]: 1 Height 162 cm (06/24/22 9:21 AM) Weight 84.0 kg (06/24/22 9:21 AM) Body Mass Index [18.5-24.99 kg/m2] 32.01 kg/m2 *>HHI* (06/24/22 9:21 AM) Patient Care team information Care Team Personnel Name: Jose Ramon Turner Position: S Outreach Member Role: PCP Address: Address: [address] [place] [address]- Care Team Related Persons Name: VERÓNICA LYNCH Address: home [address] [place] [id number]
--- OUTSIDE RECORDS SUMMARY | 2024-04-06 06:33 | XMS_ITS | Continuity of Care Document ---
Author Organization [facility] Address [address] [place] [address]- Care Team Providers Care Strain Technician Name Role Phone Jose Ramon Turner Primary Care Physician Encounter [facility] Date(s): 01/28/22 - 02/27/22 [facility] [address] [place] [address]- [place] Allergies, Adverse Reactions, Alerts Substance Reaction Severity Status aspirin rash Active Latex rash/ red pimples on skin Ac tive Avocado rash Active Medications gabapentin 600 mg oral tablet 1 tablet = 600 mg, By Mouth, 2 times a day, 0 Refills, Maintenance, 11/24/19 16:14:00 EDT Start Date: 11/24/19 Status: Ordered Premarin 0.625 mg oral tablet [...]
--- OUTSIDE RECORDS SUMMARY | 2024-04-06 06:33 | XMS_ITS | Continuity of Care Document ---
Author Organization [facility] Address [address] [place] [address] [address], [address] [place] [address]- Care Team Providers Care Ceo Name Role Phone Jose Ramon Turner Primary Care Physician [phone] Encounter [facility] [place] Date(s): 05/07/22 - 06/06/[address], [address] [place], [place] [address] Allergies, Adverse Reactions, Alerts Substance Reaction Severity [...] 16:16:00 EDT Start Date: 11/24/19 Status: Ordered Patient Care team information Personnel Name: Jose Ramon Turner Address: Address: [address] [place] [address]-
--- OUTSIDE RECORDS SUMMARY | 2024-04-06 06:33 | XMS_ITS | Continuity of Care Document ---
Author Organization [facility] Address [address] [place] [address] [address], [address] [place] [address]- Care Team Providers Care Scheduling Analyst Name Role Phone Jose Ramon Turner Primary Care Physician Encounter [facility] Date(s): 08/05/22 - 09/04/[address], [address] [place] [address]- Allergies, Adverse Reactions, Alerts Substance Reaction Severity [...] atus Informant Obese class I Confirmed Active Patient Care team information Care Team Personnel Name: Jose Ramon Turner Position: S Outreach Member Role: PCP Address: Address: [address] [place] [address]- Care Team Related Persons Name: VERÓNICA LYNCH Address: home [address] [place] [address]
--- OUTSIDE RECORDS SUMMARY | 2024-04-06 06:33 | XMS_ITS | Continuity of Care Document ---
Author Organization [facility] Address [address] [place] [address]- Care Team Providers Care Finish Opener Name Role Phone Jose Ramon Turner Primary Care Physician [place] [facility] Date(s): 04/16/22 - 08/14/22 [facility] [address] [place] [address]- Attending Physician: Leonel Jules MD Admitting Physician: Leonel Jules MD Referring Physician: Jose Ramon Turner Allergies, Adverse Reactions, Alerts Substance Reaction Severity [...] S Outreach Member Role: PCP Address: Address: [address] [place] [id number] Care Team Related Persons Name: VERÓNICA LYNCH Address: home [address] [place] [id number]
--- OUTSIDE RECORDS SUMMARY | 2024-04-06 06:33 | XMS_ITS | Continuity of Care Document ---
Author Organization [facility] Address [address] [place] [address]- Care Team Providers Care Bottle Inspector Name Role Phone Jose Ramon Turner Primary Care Physician [phone] Encounter [facility] Date(s): 12/05/19 - 12/05/[address] [address]- [facility] Discharge Disposition: A-D/C Home Attending Physician: Alfonzo Solis MD Admitting Physician: Alfonzo Solis MD Referring Physician: Alfonzo Solis MD Allergies, Adverse Reactions, Alerts Substance Reaction Severity Status aspirin rash Active Latex rash/ red pimples on skin Ac tive Avocado rash Active Medications gabapentin 600 mg oral tablet 1 tablet = 600 mg, By Mouth, 2 times a day, 0 Refills, Maintenance, 11/24/19 16:14:00 EDT Start Date: 11/24/19 Status: Ordered oxyCODONE 5 mg oral tablet 5 mg, 1, tablet, By Mouth, Every 6 hours, PRN, # 28 tablet, Refills 0, Tot. Refills 0, Acute 12/14/19 7:27:00 EDT, Pain , Moderate, 12/05/19 7:27:00 EDT, Route to Pharmacy Electronically, [facility], Partial fill upon patient request, 16... Start Date: 12/05/19 Stop Date: 12/14/19 Status: Ordered Premarin 0.625 mg oral tablet [...] 16:16:00 EDT Start Date: 11/24/19 Status: Ordered Procedures Procedure Date Related Diagnosis Body Site Status Laminectomy, facetectomy and foraminotomy (unilateral or bilateral with decompression of spinal cord, cauda equina and/or nerve root[s], [eg, spinal or lateral recess stenosis]), single vertebral segment; lumbar Comple katina Results Radiology Reports * Exam Date Time Procedure Performing Provider Status 12/05/19 8:14 AM Spine Single View Mildred Short; Auth (V erified) Notes: (Spine Single View) Reason For Exam: lumbar stenosis RESULT: Spine Single View STUDY: SINGLE LATERAL LUMBAR SPINE IN OR HISTORY: Marking level COMPARISON: MR November 26, 2018 TECHNIQUE: Single cross table lateral obtained in OR FINDINGS: Tip of metal marker points towards superior-posterior aspect L5. IMPRESSION: Tip of metal marker points towards superior-posterior aspect L5. WSN: [id number] Ordering Physician: Alfonzo Solis Dictated By: Alfonzo Hallman MD Dictated Date/Time: 12/05/19 8:18 am Reviewed By: Alfonzo Hallman MD Signed By: Alfonzo Hallman MD Signed Date/Time: 12/05/19 8:18 am Transcribed By: MERCEDEZ Transcribed Date/Time: 12/05/19 8:16 am Vital Signs Most recent to oldest [Reference Range]: 1 2 3 Height 162 cm (12/05/19 6:30 AM) 162 cm (11/24/19 4:28 PM) Weight 75.3 kg (12/05/19 6:30 AM) 73 kg (11/24/19 4:28 PM) Oxygen Saturation [94-100 %] 98 % (12/05/19 12:00 PM) 99 % (12/05/19 11:15 AM) 99 % (12/05/19 11:00 AM) Pulse Rate [55-90 bpm] 59 bpm (12/05/19 6:30 AM) Body Mass Index [18.5-24.99] 28.69 *H* (12/05/19 6:30 AM) 27.82 *H* (11/24/19 4:28 PM) Blood Pressure [90-138/55-84 mm Hg] 122/59mm Hg (12/05/19 11:15 AM) 114/60mm Hg (12/05/19 11:00 AM) 114/59mm Hg (12/05/19 10:45 AM) Respiratory Rate [16-30 br/min] 13 br/min *L* (12/05/19 11:15 AM) 17 br/min (12/05/19 11:00 AM) 12 br/min *L* (12/05/19 10:45 AM) Temperature [96.8-100.4 DegF] 98.2 DegF (12/05/19 10:30 AM) 97.6 DegF (12/05/19 9:30 AM) 97.3 DegF (12/05/19 6:30 AM) Liters per Minute 2 L/min (12/05/19 10:00 AM) 2 L/min (12/05/19 9:45 AM) 2 L/min (12/05/19 9:30 AM) Mode of Delivery (Oxygen) Room air (12/05/19 12:00 PM) Room air (12/05/19 10:45 AM) Room air (12/05/19 10:15 AM) Blood pressure sites Arm, right (12/05/19 11:15 AM) Arm, right (12/05/19 11:00 AM) Arm, right (12/05/19 10:45 AM) Temperature Route Temporal (12/05/19 10:30 AM) Temporal (12/05/19 9:30 AM) Temporal (12/05/19 6:30 AM) Dry Weight 73 kg (11/24/19 4:28 PM) Weight Obtained Via Standing scale (12/05/19 6:30 AM) Patient/family stated (11/24/19 4:28 PM) Dry Weight Obtained Via Patient/family s tated (11/24/19 4:28 PM)
--- OUTSIDE RECORDS SUMMARY | 2024-04-06 06:33 | XMS_ITS | Continuity of Care Document ---
Author Organization [facility] [address], [address] [place] [address]- Care Team Providers Care Coding Coordinator Name Role Phone Jose Ramon Turner Primary Care Physician [phone] Encounter [facility] [place] Date(s): 06/24/22 - 07/24/22 [facility] [address] [place] [address] Drive, [address] [place] [address]- Attending Physician: Marcelino Rubalcava Admitting Physician: Marcelino Rubalcava Referring Physician: AdmtrMarcelino Allergies, Adverse Reactions, Alerts Substance Reaction Severity [...] S Outreach Member Role: PCP Address: Address: [address] [place] [address]- Care Team Related Persons Name: VERÓNICA LYNCH Address: home [address] [address]
--- OUTSIDE RECORDS SUMMARY | 2024-04-06 06:33 | XMS_ITS | Continuity of Care Document ---
Author Organization [facility] Address [address] [place] [id number]- Care Team Providers Care Coding Assistant Name Role Phone Jose Ramon Turner Primary Care Physician [place] [facility] [place]14/22 [facility] [address] [place] [id number]- Attending Physician: Marcelino Rubalcava Admitting Physician: AdmMarcelino hua Referring Physician: Admtr [id number] Allergies, Adverse Reactions, Alerts Substance Reaction Severity Status aspirin rash Active Avocado rash Active Latex rash/ red pimples on skin Ac tive Medications gabapentin 600 mg oral tablet 1 [...] S Outreach Member Role: PCP Address: Address: [address] [place] [id number]- Care Team Related Persons Name: VERÓNICA LYNCH Address: home [address] [place] [id number]
== END 2024-04-02 17:04 | disposition left against medical advice (07) | DRG 392 ==
LOC: HO.ED 22:44 → HO.EDOVER 23:32 → HO.IMC 04-02 07:55
PROVIDERS: Internal Medicine; Physician Assistant; Admitting Provider Student in an Organized Health Care Education/Training Program; Emergency Provider Emergency Medicine; Visit Provider Nurse Practitioner Acute Care
DX: K52.9 Noninfective gastroenteritis and colitis, unspecified (principal); K62.5 Hemorrhage of anus and rectum; R65.10 Systemic inflammatory response syndrome (SIRS) of non-infectious origin without acute organ dysfunction; I10 Essential (primary) hypertension; Z20.822 Contact with and (suspected) exposure to COVID-19; Z91.040 Latex allergy status; Z79.899 Other long term (current) drug therapy
CPT/HCPCS: 0241U; 36415; 70450; 72125; 74178; 80048; 80076; 81001; 82272; 83690; 83735; 84484; 85014; 85018; 85025; 85610; 86850; 86900; 86901; 87086; 93005; 99285; J0696; J1836; J2405; J7120; Q9967

== ENCOUNTER → 2024-04-01 23:21 | Outpatient (BNV) | payer OTHER, MEDICARE, SELFPAY | PROVIDERS: Admitting Provider Student in an Organized Health Care Education/Training Program; Emergency Provider Emergency Medicine; Visit Provider Student in an Organized Health Care Education/Training Program | DX: K62.5 Hemorrhage of anus and rectum (principal) | CPT/HCPCS: 99222; 99238; 99499 ==